=== PATIENT | male | born 1985 | race Two or more races ===

== ENCOUNTER 2021-01-04 09:16 | Outpatient (REF) | payer MEDICARE, MEDICAID, SELFPAY ==
[2021-01-04 09:42] LABS: MANUAL DIFF FLAG NO
[2021-01-04 09:47] LABS: Basophils Absolute Auto 0.1 X10*3/uL (0.0-0.2); Basophils Percent Auto 1.2 % (0-2); Eosinophils Absolute Auto 0.3 X10*3/uL (0.0-0.4); Eosinophils Percent Auto 4.1 % (0-4); Hematocrit 47.6 % (42-52); Hemoglobin 15.8 g/dl (14.0-18.0); Imm Gran Abs Auto 0.03 X10*3/uL (0.00-0.03); Imm Gran Pct Auto 0.5 % (0.0-0.4); Lymphocytes Absolute Auto 1.8 X10*3/uL (1.2-4.9); Lymphocytes Percent Auto 27.8 % (20-40); Mean Corpuscular HGB Conc 33.2 g/dl (31.0-36.0); Mean Corpuscular Hemoglobin 28.5 pg (27.0-33.0); Mean Corpuscular Volume 85.8 fL (80-98); Mean Platelet Volume 10.2 fL (9.4-12.4); Monocytes Absolute Auto 0.5 X10*3/uL (0.1-1.2); Monocytes Percent Auto 8.2 % (2-11); Neutrophils Absolute Auto 3.8 X10*3/uL (2.0-8.3); Neutrophils Percent Auto 58.2 % (45-73); Platelet Count 229 X10*3/uL (160-400); Red Blood Count 5.55 X10*6/uL (4.60-5.80); Red Cell Distribution Width 12.6 % (11.0-16.0); White Blood Count 6.6 X10*3/uL (4.8-10.8)
[2021-01-04 10:02] LABS: Ammonia 55 umol/L (13-55)
[2021-01-04 10:14] LABS: Alanine Aminotransferase 19 U/L (0-40); Albumin Level 4.8 g/dL (3.5-5.0); Alkaline Phosphatase 73 U/L (39-117); Anion Gap 15 (12-20); Aspartate Amino Transferase 17 U/L (5-37); Bilirubin Total 0.5 mg/dL (0.0-1.0); Blood Urea Nitrogen 24 mg/dL (9-16); Calcium 9.1 mg/dL (8.4-10.2); Carbon Dioxide 20 mmol/L (22-29); Chloride 109 mmol/L (96-108); Estimated Glomerular Filt Rate > 60; Glucose Random 110 mg/dL (60-115); Potassium 4.2 mmol/L (3.3-5.1); Sodium 140 mmol/L (135-145); Total Protein 7.2 g/dL (6.5-8.0)
[2021-01-04 11:13] LABS: Carbamazepine Tegretol 6.1 mcg/mL (5.0-12.0); Valproate 37.3 mcg/mL (50.0-100.0)
[2021-01-09 18:46] LABS: Zonisamide Zonegran 12.1 mcg/mL (10.0-40.0)
== END 2021-01-04 09:17 | disposition home or self-care (01) ==
LOC: HO.10HDL 09:16
PROVIDERS: Visit Provider Psychiatry & Neurology Neurology
DX: G40.319 Generalized idiopathic epilepsy and epileptic syndromes, intractable, without status epilepticus (principal); Z79.899 Other long term (current) drug therapy
CPT/HCPCS: 36415; 80053; 80156; 80164; 80203; 82140; 85025

== ENCOUNTER 2022-03-28 15:23 | Outpatient (REF) | payer MEDICARE, SELFPAY ==
[2022-03-28 15:43] LABS: MANUAL DIFF FLAG NO
[2022-03-28 16:16] LABS: Basophils Percent Auto 0.7 % (0-2); Eosinophils Absolute Auto 0.2 X10*3/uL (0.0-0.4); Eosinophils Percent Auto 3.5 % (0-4); Hematocrit 49.9 % (42.0-52.0); Hemoglobin 16.5 g/dl (14.0-18.0); Imm Gran Abs Auto 0.05 X10*3/uL (0.00-0.03); Imm Gran Pct Auto 0.9 % (0.0-0.4); Lymphocytes Absolute Auto 1.4 X10*3/uL (1.2-4.9); Lymphocytes Percent Auto 24.4 % (20-40); Mean Corpuscular HGB Conc 33.1 g/dl (31.0-36.0); Mean Corpuscular Hemoglobin 28.1 pg (27.0-33.0); Mean Platelet Volume 10.7 fL (9.4-12.4); Monocytes Absolute Auto 0.4 X10*3/uL (0.1-1.2); Monocytes Percent Auto 6.5 % (2-11); Neutrophils Absolute Auto 3.7 x10*3/uL (2.0-8.3); Platelet Count 251 X10*3/uL (160-400); Red Blood Count 5.87 X10*6/uL (4.60-5.80); Red Cell Distribution Width 12.6 % (11.0-16.0); White Blood Count 5.7 X10*3/uL (4.8-10.8)
[2022-03-28 17:07] LABS: Carbamazepine Tegretol 7.3 mcg/mL (5.0-12.0); Valproate 28.6 mcg/mL (50.0-100.0)
[2022-03-28 17:08] LABS: Vitamin D 25-OH Total 36.4 ng/mL (>30)
== END 2022-03-28 15:24 | disposition home or self-care (01) ==
LOC: HO.LAB 15:23
PROVIDERS: Visit Provider Psychiatry & Neurology Neurology
DX: G40.319 Generalized idiopathic epilepsy and epileptic syndromes, intractable, without status epilepticus (principal); E55.9 Vitamin D deficiency, unspecified
CPT/HCPCS: 36415; 80156; 80164; 82306; 85025

== ENCOUNTER 2023-05-29 15:13 | Outpatient (AMB) | payer OTHER, SELFPAY ==
[2023-05-29 15:15] VITALS: BP 140/98; PULSE 108; O2SAT 98; BMI 39.1
--- NOTE | 2023-05-29 15:15 | A.OFFPC_ITS ---
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 Accompanied by: Self / Same As Patient Allergies shellfish derived [SHELLFISH DERIVED] Allergy (Severe, Verified 05/29/23 15:37) RASH Medication List - Last Reconciled 05/29/23 by Sonja Whalen MD cetirizine (Zyrtec) 10 mg PO DAILY PRN cholecalciferol (vitamin D3) 25 mcg PO DAILY 90 days clonazepam 1 mg PO BEDTIME divalproex ER 250 mg PO DAILY lacosamide 200 mg PO BID loratadine 10 mg PO DAILY losartan 25 mg PO DAILY 90 days midazolam (Nayzilam) intranasal montelukast 10 mg PO DAILY 90 days Ventolin HFA 90 mcg/actuation (albuterol sulfate) 2 puffs inhalation Q6H PRN 30 days NS zonisamide mg PO Tobacco use date assessed: 05/29/23 Dental Screening Dental Screen Date: 05/29/23 Did you have a dental visit in the last 12 months?: No Did you have a dental problem in the last 6 months where you did not have access to dental care?: No Was dental information given to patient?: Patient declined HPI HPI Comments History of Present Illness Details This is a 37-year-old male with grand mal seizure, hypertension and allergic rhinitis that complains of lumbar pain that has been present for about a year. He does have a lump which is a collection of fatty tissue in lower back which started to her after sitting for prolonged period of time or walking. No numbness. Seizures are follow by Neurology and has been stable with medications. Blood pressure borderline normal to elevated today and will be check at home 3 times a week. He is compliant with losartan. Blood pressure goal is equal or less than 130/80. Allergic rhinitis stable with SutureTak as needed. Accompanied by mother. [facility] Medical History Right arm pain Left forearm pain Allergic rhinitis Hypovitaminosis D Mild asthma Myoclonic seizure disorder Neck pain Surgical History History of tonsillectomy Family History (Updated 05/29/23 @ 15:29 by KIKO Gibson) Father Melanoma Family/Other Prostate cancer Mental health disorder Social History Housing: House Alcohol intake: never Patient Tobacco Use Status: Never used Tobacco e-Cigarette/Vaping Use: Never Used Second Hand Smoke Exposure: No service: No Current occupational status: unemployed and disabled Cognitive needs: No Hearing needs: No Vision needs: Yes Questionnaire PHQ-9 Over the last 2 weeks, how often have you been bothered by any of the following problems? 1. Little interest or pleasure in doing things: not at all 2. Feeling down, depressed, or hopeless: several days 3. Trouble falling or staying asleep, or sleeping too much: more than half the days 4. Feeling tired or having little energy: more than half the days 5. Poor appetite or overeating: several days 6. Feeling bad about yourself - or that you are a failure or have let yourself or your family down: not at all 7. Trouble concentrating on things, such as reading the newspaper or watching television: not at all 8. Moving or speaking so slowly that other people could have noticed. Or the opposite - being so fidgety or restless that you have been moving around a lot more than usual: not at all 9. Thoughts that you would be better off or of hurting yourself in some way: not at all Total score: 6 Source: Developed by Drs. Brad Yoo, Roula Petersen, Khadar Thompson and colleagues, with an educational juan from [employer]. Thrive Questionnaire Date Thrive assessed: 05/29/23 I am a: Patient What is your living situation today?: I have a steady place to live Within the past 12 months, did the food you bought not last and you didn't have the money to get more?: Never true Within the past 12 months, did you worry whether your food would run out before you got money to buy more?: Never true Do you have trouble paying for medicines?: No Do you have trouble getting transportation to medical appointments?: No Do you have trouble paying your heating and electricity bill?: No Do you have trouble taking care of your child, family member or friend?: No Do you have trouble with day-to-day activities such as bathing, preparing meals, shopping, managing finances, etc.?: No Are you currently unemployed and looking for a job?: No Are you interested in more education?: No Please select the resources that you would like help with: None Currently or been in a relationship where the following occur: no concerns reported AUDIT C Alcohol Use Questionnaire (AUDIT-C) 1. How often do you have a drink containing alcohol?: Never Total Score: 0 ABI-7 AMB Questionnaire ABI-7 Date ABI - 7 assessed: 05/29/23 Feeling nervous, anxious, or on edge: 1 = Several days Not being able to stop or control worryin = Not at all Worrying too much about different things: 0 = Not at all Trouble relaxin = Several days Being so restless that it is hard to sit still: 0 = Not at all Becoming easily annoyed or irritable: 1 = Several days Feeling afraid as if something awful might happen: 0 = Not at all Total ABI-7 score (0-4 normal; 5-9 mild; 10-14 moderate; 15-21 severe): 3 Source: Developed by Drs. Brad Yoo, Roula Petersen, Khadar Thompson and colleagues, with an educational juan from [employer]. ABI-7 Assessment Billing ABI-7 Assessment Tool: ABI-7 Assessment 29174 Review of Systems Const All systems reviewed & are unremarkable except as noted in HPI and below Eyes Reports no additional complaints, Denies change in vision and Denies other visual disturbances Card Denies chest pain at rest, Denies chest pain with activity, Denies edema, Denies irregular heart rhythm, Denies claudication, Denies dyspnea, Denies dyspnea on exertion, Denies orthopnea, Denies paroxysmal nocturnal dyspnea and Denies slow heart rate Resp Denies cough, Denies dyspnea and Denies dyspnea on exertion GI Denies abdominal pain, Denies change in bowel habits, Denies excessive flatus, Denies nausea and Denies vomiting Denies urinary hesitancy, Denies urinary incontinence and Denies urinary urgency Musc Denies abnormal gait, Reports back pain, Denies atrophy, Denies deformity and Denies limited range of motion Skin/Breast Denies bleeding lesions, Denies changing lesions and Denies rash Neuro Denies abnormal gait and Denies lack of coordination Physical exam (Primary Care) Vital Signs: Last Vital Signs Pulse 108 H 05/29/23 15:15 BP 140/90 H 05/29/23 16:21 Pulse Ox 98 05/29/23 15:15 Oxygen Delivery Method Room Air 05/29/23 15:15 BMI result Body Mass Index 39.1 Tobacco/Smoking Status: Tobacco use Status Tobacco use date assessed 05/29/23 05/29/23 15:30 Patient Tobacco Use Status Never used Tobacco 05/29/23 15:17 e-Cigarette/Vaping Use Never Used 05/29/23 15:17 PHQ-9: PHQ-9 Score PHQ-9: Total score 6 05/29/23 17:20 Thrive Assessment: Date of Thrive Assessment Date Thrive assessed 05/29/23 05/29/23 15:30 Currently or been in a relationship where the following occur: no concerns reported Neck Neck: Yes normal visual inspection and Yes supple Resp Effort & Inspection: normal respiratory effort Auscultation: clear to auscultation bilaterally Cardio Jugular venous distension: no JVD Rate: regular rate Rhythm: regular rhythm Heart sounds: S1 normal heart sound present and S2 normal heart sound present Extrem General: Yes full ROM Assessment and Plan Assessment & Plan (1) Lumbar pain: Code(s): M54.50 - Low back pain, unspecified Plan: X-ray ordered. (2) Grand mal seizure: Code(s): G40.409 - Other generalized epilepsy and epileptic syndromes, not intractable, without status epilepticus Plan: Continue divalproex. Follow-up with seizure. (3) Essential hypertension: Code(s): I10 - Essential (primary) hypertension Plan: Continue losartan. Blood pressure goal is equal or less than 130/80. (4) Allergic rhinitis: Code(s): J30.9 - Allergic rhinitis, unspecified Plan: Continue Zyrtec as needed. Orders: Orders SARS-CoV2/FLU/RSV Today R09.89 - Other specified symptoms and signs involving the circulatory and respiratory systems XR lumbar spine 2-3V Today M54.50 - Low back pain, unspecified Medications: New doxycycline hyclate 100 mg PO BID 10 tabs 0RF 5 days Coding Level of Care Code Est Pt Level 4 (85031) Diagnoses Lumbar pain M54.50 Grand mal seizure G40.409 Essential hypertension I10 Allergic rhinitis J30.9 Additional Codes ABI-7 Assessment Billing - ABI-7 Assessment Tool: ABI-7 Assessment 35393 ([id number]) PHQ-9 - 60776 - PHQ-9 Billing: ([id number]) Time Spent (min) 23
[2023-05-29 16:21] VITALS: BP 140/90
== END 2023-05-29 15:55 | disposition home or self-care (01) ==
PROVIDERS: PCP Internal Medicine; Visit Provider Internal Medicine
DX: M54.50 Low back pain, unspecified (principal); G40.409 Other generalized epilepsy and epileptic syndromes, not intractable, without status epilepticus; I10 Essential (primary) hypertension; J30.9 Allergic rhinitis, unspecified
CPT/HCPCS: 99214

== ENCOUNTER 2023-05-29 16:04 | Outpatient (REF) | payer OTHER, SELFPAY ==
--- NOTE | ~2023-05-29 | XR_ITS ---
EXAMINATION: XR LUMBOSACRAL SPINE CLINICAL INFORMATION: Lower back pain. COMPARISON: None available. TECHNIQUE: AP and lateral views of the lumbar spine and lateral view of the lumbosacral junction. FINDINGS: The vertebral bodies and posterior elements are normal. The disc spaces are preserved and the vertebral alignment is normal. The paraspinal soft tissues are normal. XR/XR lumbar spine 2-3V IMPRESSION: Unremarkable examination.
[2023-05-29 17:30] LABS: Influenza A PCR NEGATIVE (Negative); Influenza B PCR NEGATIVE (Negative); Resp Syncy Virus RNA Qual PCR NEGATIVE (Negative); SARS COV2 PCR INHOUSE NEGATIVE (Negative)
== END 2023-05-29 16:05 | disposition home or self-care (01) ==
LOC: HO.LAB 16:04
PROVIDERS: PCP Internal Medicine; Visit Provider Internal Medicine
DX: M54.50 Low back pain, unspecified (principal); R09.89 Other specified symptoms and signs involving the circulatory and respiratory systems; Z11.52 Encounter for screening for COVID-19
CPT/HCPCS: 0241U; 72100

== ENCOUNTER 2024-05-11 13:49 | Outpatient (AMB) | payer OTHER, SELFPAY ==
[2024-05-11 13:58] VITALS: BP 130/82; BMI 32.1
--- NOTE | 2024-05-11 13:58 | AM.OFFVISMDC ---
Intake Vital Signs 05/11/24 13:58 Height 6 ft Weight 237 lb BMI 32.1 BP 130/82 Blood Pressure Location Lt brachial Position Sitting Intake Visit Reasons: AWV G0438 Music Ministries Director Required: No Accompanied by: Self / Same As Patient Allergies shellfish derived [SHELLFISH DERIVED] Allergy (Severe, Verified 05/11/24 14:15) RASH Medication List - Last Reconciled 05/11/24 by Sonja Whalen MD cetirizine (Zyrtec) 10 mg PO DAILY PRN 90 days cholecalciferol (vitamin D3) 25 mcg PO DAILY 90 days clonazepam 1 mg PO BEDTIME lacosamide 200 mg PO BID loratadine 10 mg PO DAILY losartan 25 mg PO DAILY 90 days midazolam (Nayzilam) intranasal montelukast 10 mg PO DAILY 90 days Ventolin HFA 90 mcg/actuation (albuterol sulfate) 2 puffs inhalation Q6H PRN 30 days NS zonisamide mg PO HPI HPI Comments History of Present Illness Details This is a 38-year-old male with seizures that comes for his Medicare wellness exam. Seizures are follow by Neurology and has been stable. Ppp handed to patient. [place] of care was updated. [facility] Medical History (Updated 05/11/24 @ 15:45 by Sonja Whalen MD) Grand mal seizure Right arm pain Left forearm pain Allergic rhinitis Hypovitaminosis D Mild asthma Myoclonic seizure disorder Neck pain Surgical History History of tonsillectomy Family History (Updated 05/11/24 @ 14:19 by Sonja Whalen MD) Father Melanoma Family/Other Prostate cancer Mental health disorder Mother Asthma Social History Housing: House Alcohol intake: never Patient Tobacco Use Status: Never used Tobacco e-Cigarette/Vaping Use: Never Used Second Hand Smoke Exposure: No service: No Current occupational status: unemployed and disabled Cognitive needs: No Hearing needs: No Vision needs: Yes Questionnaire Medicare Wellness Checkup What gender do you identify with?: male During the past 4 weeks, how much have you been bothered by emotional problems such as feeling anxious, depressed, irritable, sad or downhearted, and blue?: moderately During the past 4 weeks, has your physical & emotional health limited your social activities with family, friends, neighbors, or groups?: moderately During the past 4 weeks, how much bodily pain have you generally had?: no pain During the past 4 weeks, was someone available to help you if you needed & wanted help?: yes, as much as I wanted During the past 4 weeks, what was the hardest physical activity you could do for at least 2 minutes?: light Can you get to places out of walking distance without help? (For eg., can you travel alone on buses, taxis or drive your car?): Yes Can you go shopping for groceries or clothes without someone's help?: Yes Can you prepare your own meals?: No Can you do your housework without help?: No Because of any health problems, do you need the help of another person with your personal care needs such as eating, bathing, dressing or getting around the house?: No Can you handle your own money without help?: Yes During the past 4 weeks, how would you rate your health in general?: fair During the past 4 weeks how have things been going for you?: good & bad parts about equal Are you having difficulties driving your car?: not applicable, I don't use a car Do you always fasten your seat belt when you are in a car?: yes, usually During past 4 weeks, have you been bothered by the following: never: Falling or dizzy when standing up, Sexual problems? and Problems using the telephone?, seldom: Teeth or denture problems? and sometimes: Trouble eating well? and Tiredness or fatigue? Have you fallen 2 or more times in the past year?: No Are you afraid of falling?: Yes Are you a smoker?: no During the past 4 weeks, how many drinks of wine, beer, or other alcoholic beverages did you have?: no alcohol at all Do you exercise for about 20 minutes 3 or more times a week?: no, I usually do not exercise this much Have you been given information to help with the following?: yes: Keeping track of your medications? and no: Hazards in your house that might hurt you? How often do you have trouble taking medicines the way you have been told to take them?: I always take medicine as prescribed How confident are you that you can control & manage most of your health problems?: somewhat confident What is your race?: or origin or descent Mini Mental State Exam (MMSE) Orientation What is the (year) (season) (date) (day) (month)?: year, season, date, day and month Where are we (state) (county) (town or city) (hospital) (floor)?: state, county, town or city, hospital/clinic and floor Registration Name of 3 unrelated objects clearly and slowly, then ask patient to repeat all 3 of them. (1st repeat determines score. Make sure they can repeat all three): object 1, object 2 and object 3 Attention & Calculation (CHOOSE ONE) Spell WORLD backwards (DLROW): 5 letters Recall Ask patient to repeat the 3 items from question #3.: object 1, object 2 and object 3 Language Show patient a wristwatch & ask what it is. Repeat for pencil.: watch and pencil Ask the patient to repeat the phrase 'No ifs, ands, or buts' after you.: correct Ask the patient to 'take a piece of paper with their right hand' 'fold paper in half' 'place paper on floor': take paper in right hand, fold paper in half and place paper on floor Print the sentence 'CLOSE YOUR EYES' on a piece. If patient actually closes eyes then score.: followed written direction Give patient a blank piece of paper & ask to write a sentence. Score if it contains a noun & verb.: sentence contains subject and verb Ask patient to copy figure of intersecting pentagons exactly. Score if all 10 angles & 2 intersects are included.: all 10 angles present & 2 are intersected Score Score: 30 Activity of Daily Living Bathing - sponge bath, tub bath or shower: receives no assistance (gets in/out by self, if usual bathing means Dressing - getting clothes from closets & drawers, including inner/outer garments & fasteners.: gets clothes & gets completely dressed without help Transfer: moves in & out of bed and chair without help (may use support object) Continence: controls urination/bowel movements completely by self Feeding: feeds self without help Total Score: 0 Information obtained from: patient Using telephone: independent Traveling: needs assistance Shopping: needs assistance Preparing meals: needs assistance Housework: needs assistance Taking medicine: independent Managing money: independent PHQ-9 Over the last 2 weeks, how often have you been bothered by any of the following problems? 1. Little interest or pleasure in doing things: more than half the days 2. Feeling down, depressed, or hopeless: several days 3. Trouble falling or staying asleep, or sleeping too much: nearly every day 4. Feeling tired or having little energy: nearly every day 5. Poor appetite or overeating: more than half the days 6. Feeling bad about yourself - or that you are a failure or have let yourself or your family down: nearly every day 7. Trouble concentrating on things, such as reading the newspaper or watching television: nearly every day 8. Moving or speaking so slowly that other people could have noticed. Or the opposite - being so fidgety or restless that you have been moving around a lot more than usual: several days 9. Thoughts that you would be better off or of hurting yourself in some way: not at all Total score: 18 Depression Screening Interpretation: Positive (no suicidal thoughts) Depression Screening Follow-up: Existing condition and Follow-up Visit Requested Depression Screening Done: Yes 41191 - PHQ-9 Billing: Yes Source: Developed by Drs. Brad Yoo, Roula Petersen, Khadar Thompson and colleagues, with an educational juan from [employer]. Thrive Questionnaire Date Thrive assessed: 05/11/24 I am a: Patient What is your living situation today?: I have a steady place to live Within the past 12 months, did the food you bought not last and you didn't have the money to get more?: Never true Within the past 12 months, did you worry whether your food would run out before you got money to buy more?: Never true Do you have trouble paying for medicines?: No Do you have trouble getting transportation to medical appointments?: No Do you have trouble paying your heating and electricity bill?: No Do you have trouble taking care of your child, family member or friend?: No Do you have trouble with day-to-day activities such as bathing, preparing meals, shopping, managing finances, etc.?: No Are you currently unemployed and looking for a job?: No Are you interested in more education?: No Please select the resources that you would like help with: None Currently or been in a relationship where the following occur: No concerns reported THRIVE Score: 0 AUDIT C Alcohol Use Questionnaire (AUDIT-C) 1. How often do you have a drink containing alcohol?: Never Total Score: 0 Score Reviewed/Action Taken: No ABI-7 AMB Questionnaire ABI-7 Date ABI - 7 assessed: 05/11/24 Feeling nervous, anxious, or on edge: 1 = Several days Not being able to stop or control worryin = Not at all Worrying too much about different things: 1 = Several days Trouble relaxin = Several days Being so restless that it is hard to sit still: 0 = Not at all Becoming easily annoyed or irritable: 0 = Not at all Feeling afraid as if something awful might happen: 1 = Several days Total ABI-7 score (0-4 normal; 5-9 mild; 10-14 moderate; 15-21 severe): 4 Source: Developed by Drs. Brad Yoo, Roula Petersen, Khadar Thompson and colleagues, with an educational juan from [employer]. ABI-7 Assessment Billing ABI-7 Assessment Tool: ABI-7 Assessment 57064 Review of Systems Const All systems reviewed & are unremarkable except as noted in HPI and below Card Denies chest pain at rest, Denies chest pain with activity, Denies edema, Denies irregular heart rhythm, Denies claudication, Denies dyspnea, Denies dyspnea on exertion, Denies orthopnea, Denies paroxysmal nocturnal dyspnea and Denies slow heart rate Resp Denies cough, Denies dyspnea and Denies dyspnea on exertion GI Denies abdominal pain, Denies change in bowel habits, Denies excessive flatus, Denies nausea and Denies vomiting Neuro Denies confusion Psych Denies confusion Physical Exam Vital Signs: Last Vital Signs BP 130/82 05/11/24 13:58 BMI result Body Mass Index 32.1 Const General: No confusion Orientation/consciousness: patient oriented x3 and No confusion Resp Effort & Inspection: normal respiratory effort Auscultation: clear to auscultation bilaterally Cardio Jugular venous distension: no JVD Rate: regular rate Rhythm: regular rhythm Heart sounds: S1 normal heart sound present and S2 normal heart sound present Neuro General: patient oriented x3, no focal motor deficits and No confusion Romberg Test: Negative Extrem General: Yes full ROM Psych Appearance: grossly normal Office Procedures Flu Questionnaire Does the patient have a severe egg allergy?: No Does the patient have severe life threatening allergies?: No Does the patient have a fever or illness today?: No Has the patient ever had Guillain-[place] Syndrome?: No Has the patient ever had any past reaction to a flu shot?: No Immunizations Fluarix Triv [id number] (PF) 45 mcg (15 mcg x 3)/0.5 mL IM syringe Performing Provider: Sonja Whalen MD Performing Location: [facility] Administered by: KIKO Gibson on 05/11/24 14:48 Dose Route Admin Location Dispensed Lot Number Expiration Date NDC [employer] 0.5 mL IM Right Deltoid 0.5 mL [id number] 01/11/25 [id number] [place] VIS Given Date VIS Provided VIS Publication Date 05/11/24 Single Vaccine 21 Eligibility Eligibility Date Funding Source Not [facility] Eligible 05/11/24 Private Assessment & Plan Assessment & Plan (1) Encounter for Medicare annual wellness exam: Code(s): Z00.00 - Encounter for general adult medical examination without abnormal findings Plan: Repeat in a year. (2) Myoclonic seizure disorder: Code(s): G40.409 - Other generalized epilepsy and epileptic syndromes, not intractable, without status epilepticus Plan: Continue zonisamide. Follow-up with Neurology. Orders: Orders Influenza [id number] Immunization Today Z23 - Encounter for immunization Lipid Panel Today E78.5 - Hyperlipidemia, unspecified Comprehensive [place]. Panel Fast Today G40.409 - Other generalized epilepsy and epileptic syndromes, not intractable, without status epilepticus Vitamin D 25-OH Total Today E55.9 - Vitamin D deficiency, unspecified Medications: New benzonatate 100 mg PO BID PRN 10 caps 0RF cough 5 days Quality Reporting (2019) Depression/Bipolar (159/160/161/177) PHQ-9: Total score: 18 Coding Level of Care Code Medicare First (G0438) Diagnoses Encounter for Medicare annual wellness exam Z00.00 Myoclonic seizure disorder G40.409 CPT Codes Advance Care Planning - Advance Care Planning discussion: On file, no changes ([id number]) Additional Codes ABI-7 Assessment Billing - ABI-7 Assessment Tool: ABI-7 Assessment 64912 ([id number]) Time Spent (min) 33 Advance Care Planning Advance Care Planning discussion: On file, no changes Forms completed: Health Care Proxy
== END 2024-05-11 14:43 | disposition home or self-care (01) ==
LOC: HO.HMCH 13:50
PROVIDERS: PCP Internal Medicine; Visit Provider Internal Medicine
DX: Z00.00 Encounter for general adult medical examination without abnormal findings (principal); G40.409 Other generalized epilepsy and epileptic syndromes, not intractable, without status epilepticus

== ENCOUNTER 2024-05-11 13:49 | Outpatient (REF) | payer OTHER, SELFPAY ==
[2024-05-11 16:01] LABS: Alanine Aminotransferase 28 U/L (0-40); Albumin Level 4.8 g/dL (3.5-5.0); Alkaline Phosphatase 73 U/L (39-117); Anion Gap 12 (12-20); Aspartate Amino Transferase 19 U/L (5-37); Bilirubin Total 0.5 mg/dL (0.0-1.0); Blood Urea Nitrogen 12 mg/dL (9-16); Carbon Dioxide 22 mmol/L (22-29); Chloride 109 mmol/L (96-108); Cholesterol 210 mg/dL (<200); Estimated Glomerular Filt Rate > 60; Glucose Fasting 107 mg/dL (60-99); HDL Cholesterol 44 mg/dL (>40); LDL Cholesterol Calculated 146 mg/dL (<100); Potassium 4.1 mmol/L (3.3-5.1); Sodium 139 mmol/L (135-145); Total Protein 7.7 g/dL (6.5-8.0); Triglycerides 100 mg/dL (<150)
[2024-05-11 16:17] LABS: Vitamin D 25-OH Total 35.9 ng/mL (>30)
== END 2024-05-11 13:50 | disposition home or self-care (01) ==
LOC: HO.LAB 13:49
PROVIDERS: PCP Internal Medicine; Visit Provider Internal Medicine
DX: Z00.00 Encounter for general adult medical examination without abnormal findings (principal); E55.9 Vitamin D deficiency, unspecified; E78.5 Hyperlipidemia, unspecified; G40.409 Other generalized epilepsy and epileptic syndromes, not intractable, without status epilepticus; Z23 Encounter for immunization
CPT/HCPCS: 36415; 80053; 80061; 82306; 90471; 90656; 96127

== ENCOUNTER 2025-06-29 15:35 | Outpatient (AMB) | payer OTHER, SELFPAY ==
--- OUTSIDE RECORDS SUMMARY | 2023-01-11 14:58 | XMS_ITS | Encounter Summary ---
Author Organization [facility] Address [address] [place] [address] Care Team Providers Care Manager Sports Name Role Phone Sonja Muniz MD Primary Care Provider [phone] Encounter Details Date Type Department Care Team (Late st Contact Info) Description 01/11/2023 3:58 PM EDT Hospital Encounter [facility] [address] [place] [address] Chayo Yanez PA-C [address] [place], [place] [id number] Foot injury, left, initial encounter Social History Tobacco Use Types Packs/Day Years Used Date Smoking Tobacco: Never Smokeless Tobacco: Never Alcohol Use Standard Drinks/Week Comments Never 0 (1 standard drink = 0.6 oz pur e alcohol) PHQ-2 Answer Date Recorded PHQ-2 Total Score 3 03/04/2023 Sex and Gender Information Value Date Recorded Sex Assigned at Male 01/11/2023 3:06 PM EDT Legal Sex Male 3:00 PM EDT Gender Identity Male 01/11/2023 3:06 PM EDT Sexual Orientation Choose not to disclose 2024 1:00 AM EDT Sexual Orientation Heterosexual (straight) 05/07 1:00 AM EDT COVID-19 Exposure Response Date Recorded In the last 10 days, have yo u been in contact with someone who was confirmed or suspected to have Coronavirus/COVID-19? Unable to assess 01/11/2023 3:01 PM EDT documented as of this encounter Functional Status * Over the past 2 weeks, how often have you been bothered by any of the following problems? Question Answer Date of Assessment Author Patient Health Questionnaire -2 Score 3 03/04/2023 4:26 PM EDT Eusebia Cha , CERNER ANALYST * Question Answer Date of Assessment Author Patient Health Questionnaire -9 Score 16 03/04/2023 4:26 PM EDT Eusebia Cha , CERNER ANALYST * Question Answer Date of Assessment Author PHQ-2 Total Score 3 03/04/2023 4:26 PM EDT ChaAlejandro gtzette, CERNER ANALYST Little interest or pleasure in doing things More than half the days 03/04/2023 4:26 PM EDT ChaAlejandro gtzette, CERNER ANALYST Feeling down, depressed, or hopeless Several days 03/04/2023 4:26 PM EDT ChaAlejandroEusebia, CERNER ANALYST Trouble falling or staying asleep, or sleeping too much Nearly every day 03/04/2023 4:26 PM EDT ChaAlejandroEusebia, CERNER ANALYST Feeling tired or having little energy Nearly every day 03/04/2023 4:26 PM EDT ChaAlejandroEusebia, CERNER ANALYST Poor appetite or overeating More than half the days 03/04/2023 4:26 PM EDT Cha Eusebia, CERNER ANALYST Feeling bad about yourself - or that you are a failure or have let yourself or your family down Nearly every day 03/04/2023 4:26 PM EDT Alejandro Chaette, CERNER ANALYST Trouble concentrating on things, such as reading the newspaper or watching television More than half the days 03/04/2023 4:26 PM EDT ChaAlejandroEusebia, CERNER ANALYST Moving or speaking so slowly that other people could have noticed? Or the opposite - being so fidgety or restless that you have been moving around a lot more than usual. Not at all 03/04/2023 4:26 PM EDT ChaEusebia gtz, CERNER ANALYST Thoughts that you would be better off or hurting yourself in some way Not at all 03/04/2023 4:26 PM EDT Eusebia Cha LCSW How difficult have these problems made it for you to do your work, take care of things at home, or get along with other people? Not difficult at all 03/04/2023 4:26 PM EDT Eusebia Cha LCSW PHQ-9 Total Score 16 03/04/2023 4:26 PM EDT Eusebia Cha LCSW documented as of this encounter Plan of Treatment Not on file documented as of this encounter Procedures Procedure Name Priority Date/Time Associated Diagnosis Comments XR FOOT 3+ VIEWS-LEFT STAT 01/11/2023 4:05 PM EDT Foot injury, left, initial encounter documented in this encounter Results * XR Foot 3+ views-Left (01/11/2023 4:05 PM EDT) Anatomical Region Laterality Modality Foot Left Computed Radiogr aphy 01/11/2023 4:07 PM EDT Impressions 01/11/2023 4:08 PM EDT No acute osseous injury identified. Narrative 01/11/2023 4:08 PM EDT STUDY: XR FOOT 3+ VIEWS-LEFT INDICATION: Injured foot during grand mal (tonic-clonic) seizure COMPARISON: No prior similar studies were available for comparison at this institution. FINDINGS: No displaced fracture or dislocation is seen. Mild degenerative changes are seen at the first metatarsophalangeal joint. No radiopaque foreign body is appreciated. Procedure Note Mallorie Murphy MD - 01/11/2023 STUDY: XR FOOT 3+ VIEWS-LEFT INDICATION: Injured foot during grand mal (tonic-clonic) seizure COMPARISON: [facility] FINDINGS: No displaced fracture or dislocation is seen. Mild degenerative changesare seen at the first metatarsophalangeal joint. No radiopaque foreignbody is appreciated. IMPRESSION: No acute osseous injury identified. Chayo Yanez PA-C [facility] Final Result documented in this encounter Visit Diagnoses Diagnosis Foot injury, left, initial encounter documented in this encounter Care Teams Manager Sports Relationship Specialty Start Date End Date Sonja Muniz MD [address] [place] [address] PCP - General Family Medicine 01/11/23 documented as of this encounter
--- OUTSIDE RECORDS SUMMARY | 2025-06-28 11:00 | XMS_ITS | Encounter Summary ---
Author Organization [facility] Address [address] [place] [id number] Care Team Providers Care Typesetter Perforator Operator Name Role Phone Tal Blanco MD Primary Care Provider [phone] Encounter Details Date Type Department Care Team (Late st Contact Info) Description 06/28/2025 11:00 AM EST Clinical Support [facility] Neurology, [address] [address] Georgia Loza, IVORY [address] [place] [phone] Ketogenic diet (Primary Dx); Encounter for monitoring of ketogenic diet; Seizures Social History Tobacco Use Types Packs/Day Years Used Date Smoking Tobacco: Never Smokeless Tobacco: Never Tobacco Cessation:Counseling Given: Not Answered Sex and Gender Information Value Date Recorded Sex Assigned at Male 04/15/2023 2:17 PM EDT Legal Sex Male 8:22 AM EDT Gender Identity Male 04/15/2023 2:17 PM EDT Sexual Orientation Not on file documented as of this encounter Last Filed Vital Signs Vital Sign Reading Time Taken Comments Blood Pressure 132/88 06/28/2025 11:03 AM EST Pulse - - Temperature - - Respiratory Rate - - Oxygen Saturation - - Inhaled Oxygen Concentration - - Weight 104 kg (229 lb 4.5 oz) 06/28/2025 11:03 A M EST Height 178.5 cm (5' 10.28 ) 06/28/2025 11:03 AM EST Body Mass Index 32.64 06/28/2025 11:03 AM EST documented in this encounter Patient Instructions * Patient Instructions* Georgia Loza, IVORY - 06/28/2025 11:00 AM EST Weigh yourself weekly Labs are ordered, fasting the week after [place] Change the lunch meal to 1/2 KetoVie and add in 1-2 oz protein and One fat exchange Update us in 1-2 months your weight and seizures via [employer]. Look up the Heavy cream fat exchange amount documented in this encounter Progress Notes * Georgia Loza RD - 06/28/2025 11:00 AM EST Reason for Consult: Nutrition Encounter for Modified Ketogenic Diet Medical Therapy follow up for 3 months. See in person with girlfriend Anay and benito RN Dx: Patient Active Problem List Diagnosis Intractable juvenile myoclonic epilepsy Primary hypertension Class 3 severe obesity with body mass index (BMI) of 40.0 to 44.9 in adult, unspecified obesity type, unspecified whether serious comorbidity present Modified Ketogenic diet Stomach feeling better now Seizures: no big seizures, last one end of April Little seizures once per 3-4 weeks, Anay agreed too. prior to initiating diet : diet efficacy goal is < 1 or 1 per month Seizures: more with illness Ketones : checking moderate to large for past 4 days now ,l 50-75% improved per Laurie and girlfriend Noticed more energy , not as brain foggy per girlfriend Diet History: Growth : Wt Readings from Last 3 Encounters: 06/28/25 (!) 104 kg (229 lb 4.5 oz) 05/26/25 (!) 102.5 kg (225 lb 15.5 oz) 05/26/25 (!) 102.5 kg (225 lb 15.5 oz) Ht Readings from Last 3 Encounters: 05/26/25 182 cm (5' 11.65 ) 05/26/25 182 cm (5' 11.65 ) 05/03/25 182 cm (5' 11.65 ) There is no height or weight on file to calculate BMI. Diet:MKD : calculating as 5 carbs? So 100-120 oz fluids per day MKD @ 3 meals with 20 net carbs per day 3-4 oz of protein per meal x 3 per day 3 fat exchanges per meal x 3 for 9 exchanges per day. 1- Centrum MVI with minerals per day Use Swan's lite salt and regular salt daily Vitamin D Effer K Allergies : Allergies Allergen Reactions Shellfish Derived Hives and Swelling Formula: KetoVie vanilla he called them 3 days ago: they send they would be sending it out :and obtain it from [facility]. Ketoformula: liked chocolate Luke: [facility] [place] will deliver. Foods/meals: B: lettuce wraps 11-12 am : 2 lettuce and 2 wraps, turkey and marie (1) 16 slices ( [facility]) or salami (5) cheese sharp [employer] cheese and salt Mostly zayra: turkey , pepperoni, roast beef and pastramai, Max's 4-6 net carbs L: 3-4 Luke shake with water no other foods , carbs or protein D:7 pm : meatballs keto homemade : mushrooms and gravy and zucchini noodles and heavy cream steak and asparagus , cauliflower rice or chicken with heavy cream and cheese , zucchini noodle : Chicken pork rinds, No snack Free foods :pickles, 90% chocolate Meals are 15 net carbs Fluids:water per day Fluids: loves his water 100-120 oz per day Urine and skin: no issues Bowel movements:daily no issues Bowel aids: not needed Reflux: no Vitamins and supplements: MVI with minerals: Calcium: not taking Salt: lite salt : yes Bicarbonate: Effer K Medications: Current Outpatient Medications Medication Instructions albuterol (VENTOLIN HFA) 90 mcg/actuation inhaler cetirizine (ZYRTEC) 10 mg cholecalciferol (VITAMIN D3) 25 mcg (1,000 unit) capsule 1 tablet, Daily citric acid-sodium citrate (BICITRA) 500-334 mg/5 mL solution 15 mLs, Oral, 3 times daily with meals clonazePAM (KLONOPIN) 2 mg, Every evening fluticasone propionate (FLONASE) 50 mcg/actuation nasal spray 1 spray, Daily KETONE URINE TEST strip 1 strip, Other, As needed, Take urine ketones daily in pm LUKE 3.4 gram-159 kcal/100 mL Liquid lacosamide (VIMPAT) 200 mg, 2 times daily losartan (COZAAR) 25 mg, Daily montelukast (SINGULAIR) 10 mg, Daily multivitamin tablet 1 tablet, Daily NAYZILAM 5 mg/spray (0.1 mL) [place], Non-Aerosol No dose, route, or frequency recorded. ondansetron (ZOFRAN) 4 MG tablet No dose, route, or frequency recorded. ondansetron (ZOFRAN-ODT) 4 mg, Every 8 hours PRN potassium bicarbonate (EFFER-K) 25 MEQ effervescent tablet 25 mEq, Oral, 2 times daily sodium chloride (SWAN LITE SALT) Salt meals zonisamide (ZONEGRAN) 300 mg, Nightly FDI: MVI with minerals: Do not take with calcium carbonate supplements. Last Labs: now due for 3 month lab protocol: Last BHB negative 0.37. History : Julia is here for his 1 month MKD diet follow up and has lost ~ 2 kg in the past month and now since past Saturday getting large and some extra large urine ketones. Physically looks well nourished with no skin issues, no constipation or reflux, Drinking 100% plus fluids no issues mainly water. Had a couple bouts of low blood sugar he treated with sips of juice now resloved. He has chosen to hold on his Nutrafol medication which had 1 net carb. Pt consuming 18-19 net carbs per day with 3 meals per day ( roughly 2 meals and one snack. Taking excellent protein to keep full and doing great with fat exchanges mostly using marie and heavy cream and olive oil. Calcium supplement not needed at this time as pt consuming ~ 3 servings of calcium from cheese slices, block cheese shredded, unsweetened almond milk and imer's shakes. Taking the Bicitra ( does not like taste) and MVI and salt with vitamin D supplement. No change to medications just saw his Adult Neurologist. Overall tolerating the MKD without symptoms with some success on seizures at this point. Need labs to futher assess ketones in blood and nutritional tolerances. Girlfriend and Laurie are noticing positive side effects for focusing and mood and ability to engage in movement and activities. . Keto team fruther reinforced sick guidelines and other meal lifestyle guidelines as needed. 05.26.25 Saw Laurie to help with guidance to get back to stronger ketosis. He stated he ate edamames and got food posisining. He is back to eating his usual and his urine ketones are on smaller range. Reinforced his diet and he is back to doing the diet as he was last month when seizures were more in control. During an illness the gut microbiome is disturbed and it may take some time to replenish the ketone produced bacteria that goes to the brain. Keto labs taken after illness indicating tolerance of MKD Chol 217 and Trig 58, carnitine normal . BHB negative 0.37. Could use extra fat once patient feeling better from GI illness. Will add more fat or slightly decrease at next visit in 1 month Assessment: Since illness , last 4 days in moderate to large ketosis. Weight has increased most likely not being in ketosis due to illness. Pt well now and back to normal. He has been counting the KetoVie as 5 net carbs and it is only 0.5 . Will keep the goal at 15 net carbs as pt has improved with seizure control. Weight may go down if patient can stay in ketosis. Not giving adequate fat , re-educated Nutrition Diagnosis: altered carbohydrate metabolism related to the modified keto diet as evidencedby diet analysis and ketones in the urine. Intervention: Weigh yourself weekly Labs are ordered, fasting the week after Greg Change the lunch meal to 1/2 KetoVie and add in 1-2 oz protein and One fat exchange ( this will help reduced calories but add no additional carbs) Update us in 1-2 months your weight and seizures via [employer]. Look up the Heavy cream fat exchange amount Follow up in 4 month documented in this encounter Plan of Treatment Upcoming Encounters Date Type Department Care Team (Late st Contact Info) Description 11/08/2025 8:40 AM EDT Office Visit [facility] Neurology, [address] [address] Kathie Koenig MD [address] [place] [id number] 11/08/2025 9:00 AM EDT Clinical Support [facility] [place] [id number] documented as of this encounter Visit Diagnoses Diagnosis Ketogenic diet- Primary Other specified conditions influencing health status Encounter for monitoring of ketogenic diet Seizures Other convulsions documented in this encounter Care Teams Typesetter Perforator Operator Relationship Specialty Start Date End Date Tal Blanco MD [address] [place] [address] PCP - General 02/28/23 documented as of this encounter
--- NOTE | 2025-06-29 15:37 | A.OFFPC_ITS ---
Vital Signs 06/29/25 15:38 Height 6 ft Weight 229 lb 4 oz BMI 31.1 BP 140/90 H Blood Pressure Location Lt brachial Position Sitting Respiration 16 Pulse 70 Pulse Source Pulse Oximeter Temp 96.8 F Temp Source Temporal Artery Scan Pulse Oximetry (%) 96 Oxygen Delivery Method Room Air Intake Visit Reasons: Annual visit Medical Facilities Section Director Required: No Accompanied by: Self / Same As Patient Allergies shellfish derived (SHELLFISH DERIVED) Allergy (Severe, Verified 06/29/25 16:03) RASH Medication List - Last Reconciled 06/29/25 by Sonja Whalen MD cetirizine (Zyrtec) 10 mg PO DAILY PRN 90 days cholecalciferol (vitamin D3) 25 mcg PO DAILY 90 days clonazepam 1 mg PO BEDTIME ketoconazole 2% topical 2XW lacosamide 200 mg PO BID losartan 25 mg PO DAILY 90 days midazolam (Nayzilam) intranasal montelukast 10 mg PO DAILY 90 days sodium citrate-citric acid 500-334 mg/5 mL mL PO Ventolin HFA 90 mcg/actuation (albuterol sulfate) 2 puffs inhalation Q6H PRN 30 days NS zonisamide mg PO Tobacco use date assessed: 06/29/25 Dental Screening Dental Screen Date: 06/29/25 Did you have a dental visit in the last 12 months?: No Did you have a dental problem in the last 6 months where you did not have access to dental care?: No Was dental information given to patient?: No HPI HPI Comments History of Present Illness Details The patient is a 39 year old male presenting for a physical examination. He has a history of a seizure disorder and reports his seizure doctor recommended weight loss as it may be contributing to his seizures. Initially, he was not approved for a ketogenic diet because he was not having seizures, but was later approved after they recurred. Prior to the keto diet, he was consuming only salads and shakes, which he believes may have caused seizures due to inadequate caloric intake. He was hospitalized in April due to food poisoning, which he believes caused him to exit ketosis, leading to subsequent weight gain of 4 pounds. Since the food poisoning, he has experienced four or five seizures. He is currently receiving education on the ketogenic diet. Regarding his medications, the patient reports he has not been taking his losartan 25 mg as he was advised by his seizure doctor that weight loss should lower his blood pressure. He takes Zyrtec, vitamin D, clonazepam, ketoconazole shampoo, lacosamide (which replaced Keppra), Singulair, and zonisamide. He has a known allergy to shellfish. Past surgical history includes a tonsillectomy and a right inguinal hernia repair. A questionnaire completed as part of the physical detected some depression, though the patient is not currently seeing anyone for this. He received a flu vaccine in March or April. He does not recall when his last tetanus vaccine was. [facility] Medical History Grand mal seizure Right arm pain Left forearm pain Allergic rhinitis Hypovitaminosis D Mild asthma Myoclonic seizure disorder Neck pain Surgical History (Updated 06/29/25 @ 16:12 by Sonja Whalen MD) Inguinal hernia History of tonsillectomy Family History Father Melanoma Family/Other Prostate cancer Mental health disorder Mother Asthma Social History Housing: House Alcohol intake: never Patient Tobacco Use Status: Never used Tobacco e-Cigarette/Vaping Use: Never Used Second Hand Smoke Exposure: No service: No Current occupational status: unemployed and disabled Cognitive needs: No Hearing needs: No Vision needs: Yes (rx glasses) Questionnaire PHQ-9 Over the last 2 weeks, how often have you been bothered by any of the following problems? 1. Little interest or pleasure in doing things: not at all 2. Feeling down, depressed, or hopeless: several days 3. Trouble falling or staying asleep, or sleeping too much: several days 4. Feeling tired or having little energy: several days 5. Poor appetite or overeating: not at all 6. Feeling bad about yourself - or that you are a failure or have let yourself or your family down: more than half the days 7. Trouble concentrating on things, such as reading the newspaper or watching television: several days 8. Moving or speaking so slowly that other people could have noticed. Or the opposite - being so fidgety or restless that you have been moving around a lot more than usual: several days 9. Thoughts that you would be better off or of hurting yourself in some way: several days Total score: 8 Depression Screening Interpretation: Positive Depression Screening Follow-up: Existing condition and Follow-up Visit Requested Depression Screening Done: Yes Source: Developed by Drs. Brad Yoo, Roula Petersen, Khadar Thompson and colleagues, with an educational juan from [employer]. Thrive Questionnaire Date Thrive assessed: 06/29/25 I am a: Patient What is your living situation today?: I have a place to live, but I am worried about losing it in the future Within the past 12 months, did the food you bought not last and you didn't have the money to get more?: Sometimes True Within the past 12 months, did you worry whether your food would run out before you got money to buy more?: Sometimes True Do you have trouble paying for medicines?: No Do you have trouble getting transportation to medical appointments?: No Do you have trouble paying your heating and electricity bill?: Yes Do you have trouble taking care of your child, family member or friend?: Yes Do you have trouble with day-to-day activities such as bathing, preparing meals, shopping, managing finances, etc.?: No Are you currently unemployed and looking for a job?: I choose not to answer this question Are you interested in more education?: I choose not to answer this question Please select the resources that you would like help with: Housing/Retirement, Food and Utilities Currently or been in a relationship where the following occur: I choose not to answer THRIVE Score: 4 AUDIT C Alcohol Use Questionnaire (AUDIT-C) 1. How often do you have a drink containing alcohol?: Never Total Score: 0 Score Reviewed/Action Taken: No ABI-7 AMB Questionnaire ABI-7 Date ABI - 7 assessed: 06/29/25 Feeling nervous, anxious, or on edge: 2 = More than half the days Not being able to stop or control worryin = Several days Worrying too much about different things: 2 = More than half the days Trouble relaxin = Several days Being so restless that it is hard to sit still: 0 = Not at all Becoming easily annoyed or irritable: 1 = Several days Feeling afraid as if something awful might happen: 1 = Several days Total ABI-7 score (0-4 normal; 5-9 mild; 10-14 moderate; 15-21 severe): 8 Source: Developed by Drs. Brad Yoo, Roula Petersen, Khadar Thompson and colleagues, with an educational juan from [employer]. ABI-7 Assessment Billing ABI-7 Assessment Tool: ABI-7 Assessment 02945 Review of Systems Const All systems reviewed & are unremarkable except as noted in HPI and below Card Denies chest pain at rest, Denies chest pain with activity, Denies edema, Denies irregular heart rhythm, Denies claudication, Denies dyspnea, Denies dyspnea on exertion, Denies orthopnea, Denies paroxysmal nocturnal dyspnea and Denies slow heart rate Resp Denies cough, Denies dyspnea and Denies dyspnea on exertion GI Denies abdominal pain, Denies change in bowel habits, Denies excessive flatus, Denies nausea and Denies vomiting Denies urinary hesitancy, Denies urinary incontinence and Denies urinary urgency Physical exam (Primary Care) Vital Signs: Last Vital Signs Temp 96.8 F 06/29/25 15:38 Pulse 70 06/29/25 15:38 Resp 16 06/29/25 15:38 BP 140/90 H 06/29/25 15:38 Pulse Ox 96 06/29/25 15:38 Oxygen Delivery Method Room Air 06/29/25 15:38 BMI result Body Mass Index 31.1 BMI Assessment/Plan discussion: High BMI High, discussed plan: lifestyle, weight reduction, dietary and physical activity Tobacco/Smoking Status: Tobacco use Status Tobacco use date assessed 06/29/25 06/29/25 15:53 Patient Tobacco Use Status Never used Tobacco 06/29/25 15:53 e-Cigarette/Vaping Use Never Used 06/29/25 15:53 PHQ-9: PHQ-9 Score PHQ-9: Total score 8 06/29/25 15:53 Depression Screening Interpretation: Positive Depression Screening Follow-up: Existing condition and Follow-up Visit Requested Thrive Assessment: Date of Thrive Assessment Date Thrive assessed 06/29/25 06/29/25 15:53 Currently or been in a relationship where the following occur: I choose not to answer HENMT Head: Yes normal to inspection, Yes normocephalic and Yes atraumatic Ears: external ears normal Eyes General: appearance normal, both eyes and all related structures Eyelids: Yes eyelids normal Conjunctivae: conjunctivae normal Neck Neck: Yes normal visual inspection and Yes supple Resp Effort & Inspection: normal respiratory effort Auscultation: clear to auscultation bilaterally Cardio Jugular venous distension: no JVD Rate: regular rate Rhythm: regular rhythm Heart sounds: S1 normal heart sound present and S2 normal heart sound present GI Inspection: Yes normal to inspection Palpation (GI): Soft to palpation and nontender Auscultation: normal bowel sounds Skin General skin exam: no rashes or lesions noted Neuro General: no focal motor deficits Extrem General: Yes full ROM Psych Appearance: grossly normal Coding Level of Care Code Est Pt Prev Care 18-39y(94018) Diagnoses Physical exam Z00.00 Myoclonic seizure disorder G40.409 Additional Codes ABI-7 Assessment Billing - ABI-7 Assessment Tool: ABI-7 Assessment 55805 ([id number]) Time Spent (min) 31 Assessment & Plan Assessment & Plan (1) Physical exam: Code(s): Z00.00 - Encounter for general adult medical examination without abnormal findings Category: Medical (2) Myoclonic seizure disorder: Code(s): G40.409 - Other generalized epilepsy and epileptic syndromes, not intractable, without status epilepticus Category: Medical Plan Plan 1. Physical Examination The patient presents for a routine physical exam. Blood work will be ordered to check cholesterol, sugar, kidney, and liver function. The patient can have these labs drawn along with his keto labs after the New Year. 2. Seizure Disorder The patient's seizure specialist recommended weight loss to help manage his seizures. He has been following a ketogenic diet, which was approved after his seizures recurred. He reports an increase in seizure activity, with 4-5 events since a recent episode of food poisoning. 3. Hypertension The patient has not been taking his losartan 25 mg as he was advised that weight loss would lower his blood pressure. His blood pressure is currently elevated. Advised the patient to resume taking losartan for now. The medication may be discontinued in the future if he continues to lose weight. 4. Depression A screening questionnaire indicated a mild level of depression. Options including counseling or medication were discussed. The patient was advised to consider these options and can follow up via the patient portal if he wishes to pursue treatment. Orders: Orders Comprehensive [place]. Panel Fast Today I10 - Essential (primary) hypertension Lipid Panel Today E78.5 - Hyperlipidemia, unspecified
[2025-06-29 15:38] VITALS: BP 140/90; PULSE 70; RESP 16; TEMP 36; O2SAT 96; BMI 31.1
--- OUTSIDE RECORDS SUMMARY | 2025-06-29 19:46 | XMS_ITS | Encounter Summary ---
Author Organization [facility] Address [address] [place] [address] Care Team Providers Care Top Precipitator Operator Name Role Phone Sonja Muniz Primary Care Provider [phone] Encounter Details Date Type Department Care Team (Late st Contact Info) Description 12/15/2021 myChart Message [facility] [address] [place] [address] Gisele Cerda MD [address] [place] [address] Follow up Appointment Social History Tobacco Use Types Packs/Day Years Used Date Smoking Tobacco: Never Smokeless Tobacco: Never Comments:: Alcohol Use Standard Drinks/Week Comments No 0 (1 standard drink = 0.6 oz pur e alcohol) Sex and Gender Information Value Date Recorded Sex Assigned at Male 08/21/2020 6:17 PM EST Legal Sex Male 3:43 AM EDT Gender Identity Male 08/21/2020 6:17 PM EST Sexual Orientation Straight 08/21/2020 6: 17 PM EST documented as of this encounter Plan of Treatment Not on file documented as of this encounter Visit Diagnoses Not on filedocumented in this encounter Care Teams Top Precipitator Operator Relationship Specialty Start Date End Date Sonja Muniz [address] [place] [address] [place] [address] PCP - General 01/31/17 documented as of this encounter
--- OUTSIDE RECORDS SUMMARY | 2025-06-29 19:46 | XMS_ITS | Clinical Summary ---
Author Organization [facility] Address [address] [place] [address] Care Team Providers Care Insulator Helper Name Role Phone Sonja Muniz MD Primary Care Provider [phone] Allergies Active Allergy Reactions Criticality Noted Date Comments Shellfish Protein-Containing Drug Products Hives,Swelling Medium 02/14/2023 Medications cetirizine (ZyrTEC) 10 MG tablet Take 1 tablet (10 mg total) by mouth. Active montelukast (SINGULAIR) 10 MG tablet Take 1 tablet (10 mg total) by mouth daily. 10/25/19 23 Active Ventolin HFA 108 (90 Base) MCG/ACT inhaler INHALE 2 PUFFS BY MOUTH EVERY 6 HOURS NEEDED FOR SHORTNESS OF BREATH OR WHEEZING 12/14/19 23 Active cholecalciferol (VITAMIN D3) 1000 units capsule Take 1 tablet by mouth daily. 08/01/19 23 Active ondansetron (ZOFRAN) 4 MG tablet 02/12/20 23 Active losartan (COZAAR) 25 MG tablet Take 1 tablet (25 mg total) by mouth daily. 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 Place tablet on tongue to dissolve. 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 02/14/2023 Encounters Date Type Department Care Team Description 05/11/2025 8:30 AM EDT Telemedicine EPILEPSY [id number] 85 [facility] [address] [place] [id number] Tal Blanco MD Depression, unspecified depression type (Primary Dx); 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); Obesity (BMI 30-39.9) 05/07/2025 12:56 AM EDT - 05/07/2025 5:03 AM EDT Emergency [facility] Emergency Department [address] [place] [id number] Arters, Alli M III, DO Seizure (HCC) (Primary Dx) Discharge Disposition: Home or Self Care 03/30/2025 3:00 PM EDT Telemedicine EPILEPSY [id number] [address] [id number] Tal Blanco MD 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 Jain-Papo Kidney Stones Maternal Aunt 2 Ada Kayley Jain Asthma Maternal Grandmother Ada M Papo Hypertension Maternal Grandmother Ada M Papo Asthma Mother Federica M Reilly Hypertension Mother Federica M Reilly Insomnia Mother Federica M Reilly Obesity Mother Federica M Reilly PONV Mother Federica M Reilly Propofol, Fe ntamyn Pneumonia Mother Federica M Reilly Diabetes Paternal Grandfather John Hager-Jamaica Hypertension Paternal Grandmother Lorena Maynor Diabetes Paternal Uncle John Hager-Maynor Relation Name Status Comments Brother 1 Ricardo Madan-Jain Alive Brother 2 Kalen Madan-Jain Alive Brother 3 Sushil Hager-Jain Alive Father Ricardo Hager-Maynor Alive Maternal Aunt 1 Davis W. Jain-Papo Alive Maternal Aunt 2 Ada Kayley Jain Alive Maternal Grandmother Ada M Papo Alive Mother Federica M Reilly Alive Paternal Grandfather John Madan-Jamaica Alive Paternal Grandmother Lorena Mcguire Alive Paternal Uncle John Hager-Maynor Alive Social History Tobacco Use Types Packs/Day Years Used Date Smoking Tobacco: Never Smokeless Tobacco: Never Tobacco Cessation:Counseling Given: Not Answered Alcohol Use Standard Drinks/Week Comments Never 0 [...] Orientation Heterosexual (straight) 05/07 1:00 AM EDT Last Filed Vital Signs Vital Sign Reading Time Taken Comments Blood Pressure 130/74 05/07/2025 2:58 AM EDT Pulse 79 05/07/2025 2:58 AM EDT Temperature 36.6 C (97.8 F) 05/07/2025 2:58 AM EDT Respiratory Rate 18 05/07/2025 2:58 AM EDT Oxygen Saturation 92% 05/07/2025 2:58 AM EDT Inhaled Oxygen Concentration - - Weight 99.3 kg (219 lb) 11/05/2024 1:47 PM EDT Height 182.9 cm (6') 11/05/2024 1:47 PM EDT Body Mass Index 29.7 11/05/2024 1:47 PM EDT Plan of Treatment Health Maintenance Due Date Last Done Comments Hepatitis C Virus Screening 1986 HIV Screening 12/24/1999 DTaP/Tdap/Td Vaccines (1 - Tdap) 2005 Hepatitis B Vaccines (1 of 3 - 19+ 3-dose series) 2005 COVID-19 Vaccine ( - season) 2025 06/27/2022, 06/26/2021 Influenza Vaccine Completed 04/16/2025, , 04/15/2023, Additional history exists HPV Vaccines (No Doses Required) Completed Pneumococcal Vaccine: Pediatric (0-5 Years) and At-Risk Patients (6 to 49 Years) Aged Out No longer eligible based on patient's age to complete this topic Procedures Procedure Name Priority Date/Time Associated Diagnosis Comments ECG 12-LEAD STAT 05/07/2025 2:05 AM EDT from Last 3 Months Results * ECG 12 lead (05/07/2025 2:05 AM EDT) Ventricular rate 78 BPM EKG [facility] Atrial rate 78 BPM EKG [facility] P-R interval 198 ms EKG [facility] QRS duration 96 ms EKG [facility] Q-T interval 386 ms EKG [facility] QTC calculation (Bazett) 440 ms EKG [facility] P axis 35 degrees EKG [facility] R axis -16 degrees EKG [facility] T axis 3 degrees EKG [facility] 05/07/2025 2:05 AM EDT Narrative EKG [facility] - 05/07/2025 10:17 PM EDT Normal sinus rhythm Normal ECG When compared with ECG of 11-Feb-2023 03:19, T wave inversion no longer evident in Anterior leads Confirmed by DO Fuentes Kyla ([id number]) on 05/07/2025 10:17:13 PM Procedure Note Yanci Fuentes DO - 05/07/2025 Normal sinus rhythm Normal ECG When compared with ECG of 11-Feb-2023 03:19, T wave inversion no longer evident in Anterior leads Confirmed by DO Fuentes Kyla ([id number]) on 05/07/2025 10:17:13 PM Alli Childress III, DO ECG ORDERABLES [facility] Last 3 Months Insurance [facility] MEDIC[facility] PART A & B [facility] PART A & B [employer] MEDICARE Care Teams Insulator Helper Relationship Specialty Start Date End Date Sonja Muniz MD [address] [place] [id number] PCP - General Family Medicine 01/11/23
--- OUTSIDE RECORDS SUMMARY | 2025-06-29 19:46 | XMS_ITS ---
Author Name [facility] Organization Unknown Results Test Name/Text Value Interpretation Date Range Source WBC 0.0 /HPF Normal 5 0 - 0 [facility] RBC 1.0 /HPF Above high normal 5 0 - 0 [facility] PH 6.5 Normal 5 5 - 8 [facility] APPEARANCE CLEAR Normal 5 - [facility] BILIRUBIN NEGATIVE Normal 5 - [facility] SPECIFIC GRAVITY 1.02 Normal 5 1.005 - 1.03 [facility] GLUCOSE NEG Normal 5 - [facility] BLOOD NEG Normal 5 - [facility] LEUK. ESTERASE NEG Normal 5 - [facility] UROBILINOGEN 0.2 MG/DL Normal 5 0 - 1 [facility] COLOR YELLOW Normal 5 - [facility] NITRITE NEG Normal 5 - [facility] PROTEIN NEG Normal 5 - [facility] KETONES >=80 Critically abnormal 05/07/20 2 5 - [facility] BARBITURATES Negative Normal 5 - [facility] COCAINE Negative Normal 5 - [facility] BENZODIAZEPINES Positive Critically abnormal 05/07 5 - [facility] AMPHETAMINES Negative Normal 5 - [facility] OPIATES Negative Normal 5 - [facility] PCP Negative Normal 5 - [facility] MARIJUANA Negative Normal 5 - [facility] GFRE 112.0 Normal 5 60 - [facility] MAGNESIUM 2.0 mg/dL Normal 5 1.6 - 2.6 [facility] PHOSPHOROUS < 2.4 Below low normal 5 2.4 - 5.1 [facility] LIPASE 30.0 U/L Normal 5 12 - 53 [facility] BUN/CREAT.RATIO 19.5 Normal 5 [facility] BUN 16.0 mg/dL Normal 5 9 - 23 [facility] AST (SGOT) 18.0 U/L Normal 5 0 - 34 [facility] GLUCOSE 118.0 mg/dL Above high normal 5 74 - 106 [facility] CHLORIDE 106.0 mmol/L Normal 5 98 - 107 [facility] SODIUM 140.0 mmol/L Normal 5 136 - 145 [facility] CREATININE 0.82 mg/dL Normal 5 0.7 - 1.3 [facility] POTASSIUM SERUM 4.1 mmol/L Normal 5 3.5 - 5.1 [facility] BILIRUBIN,TOTAL 0.3 mg/dL Normal 5 0.3 - 1.2 [facility] ALT (SGPT) 21.0 U/L Normal 5 10 - 49 [facility] ALBUMIN 5.0 g/dL Above high normal 5 3.2 - 4.8 [facility] ALKALINE PHOSPHATASE 69.0 U/L Normal 02 5 45 - 129 [facility] PROTEIN, TOTAL 7.4 g/dL Normal 5 5.7 - 8.2 [facility] CO2 22.0 mmol/L Normal 5 20 - 31 [facility] GLOBULIN 2.4 g/dL Normal 5 2.2 - 3.5 [facility] A/G RATIO 2.1 g/dL Normal 5 [facility] PATIENT FASTING? UNKNOWN Normal 5 [facility] ABSOLUTE GRANULOCYTES 12.2 K/uL Above high normal 1 5 2.2 - 7.3 [facility] NUCLEATED RBC 0.0 % Normal 5 0 - 0.2 [facility] ABSOLUTE MONOS 0.5 K/uL Normal 5 0.2 - 1.5 [facility] MCHC 32.1 g/dL Normal 5 31 - 36 [facility] IMMATURE GRANULOCYTES 0.0 % Normal 5 0 - 0.45 [facility] BASOPHILS 0.0 % Normal 5 0 - 2 [facility] ABSOLUTE LYMPHS 0.5 K/uL Below low normal 05/06/20 2 5 1.5 - 4.9 [facility] ABSOLUTE NUCLEATED RBC 0.0 K/uL Normal 5 0 - 0.012 [facility] LYMPHS 4.0 % Below low normal 5 16 - 50 [facility] MONOCYTES 4.0 % Normal 5 0 - 12 [facility] WBC 13.4 K/uL Above high normal 5 3.7 - 10.3 [facility] ABSOLUTE BASO 0.0 K/uL Normal 5 0 - 0.2 [facility] RDW 13.2 % Normal 5 11.1 - 13.3 [facility] MCH 28.0 PG Normal 5 27 - 34 [facility] HCT 48.9 % Normal 5 40 - 52 [facility] MCV 86.0 fL Normal 5 83 - 102 [facility] RBC 5.67 M/uL Normal 5 4.3 - 6 [facility] MPV 11.0 fL Normal 5 8 - 12 [facility] GRANULOCYTES 92.0 % Above high normal 5 23 - 78 [facility] ABSOLUTE EOS 0.0 K/uL Normal 5 0 - 0.7 [facility] ABSOLUTE IMMATURE GRANULOCYTES 0.1 K/uL Normal 5 0 - 0.3 [facility] EOSINOPHILS 0.0 % Normal 5 0 - 6 [facility] HGB 15.7 g/dL Normal 5 13.5 - 18 [facility] PLATELET COUNT 251.0 K/uL Normal 5 150 - 480 [facility] Glucose SerPl-mCnc 97.0 mg/dL Normal 07/10/202 5 65 - 99 [facility] BUN SerPl-mCnc 17.0 mg/dL Normal 5 7 - 25 [facility] eGFRcr SerPlBld CKD-EPI 2020 119.0 mL/min/1.73m2 Normal 5 - [facility] Bilirub SerPl-mCnc 0.5 mg/dL Normal 5 0.2 - 1.2 [facility] BUN/Creat SerPl SEE NOTE: 5 6 - 22 [facility] Prot SerPl-mCnc 6.8 g/dL Normal 5 6.1 - 8.1 [facility] Creat SerPl-mCnc 0.74 mg/dL Normal 5 0.6 - 1.26 [facility] ALT SerPl-cCnc 19.0 U/L Normal 5 9 - 46 [facility] CO2 SerPl-sCnc 24.0 mmol/L Normal 5 20 - 32 [facility] Albumin SerPl-mCnc 4.9 g/dL Normal 5 3.6 - 5.1 [facility] Potassium SerPl-sCnc 4.4 mmol/L Normal 02 5 3.5 - 5.3 [facility] Chloride SerPl-sCnc 108.0 mmol/L Normal 01/22/20 2 5 98 - 110 [facility] AST SerPl-cCnc 14.0 U/L Normal 5 10 - 40 [facility] Albumin/Glob SerPl 2.6 (calc) Above high normal 01/12 5 1 - 2.5 [facility] Globulin Ser Calc-mCnc 1.9 g/dL (calc) Normal 5 1.9 - 3.7 [facility] Sodium SerPl-sCnc 138.0 mmol/L Normal 5 135 - 146 [facility] Calcium SerPl-mCnc 9.8 mg/dL Normal 5 8.6 - 10.3 [facility] ALP SerPl-cCnc 73.0 U/L Normal 5 36 - 130 [facility] ZONISAMIDE 22.8 mcg/mL 5 10 - 40 [facility] RBC Auto 86.6 fL Normal 5 80 - 100 [facility] Eosinophil # Bld Auto 241.0 cells/uL Normal 01/12 5 15 - 500 [facility] Lymphocytes # Bld Auto 1288.0 cells/uL Normal 5 850 - 3900 [facility] Hct VFr Bld Auto 50.4 % Above high normal 5 38.5 - 50 [facility] Neutrophils NFr Bld Auto 65.9 % Normal 5 [facility] Monocytes NFr Bld Auto 5.9 % Normal 5 [facility] Monocytes # Bld Auto 330.0 cells/uL Normal 01/21 5 200 - 950 [facility] RDW RBC Auto 12.6 % Normal 5 11 - 15 [facility] WBC # Bld Auto 5.6 Thousand/uL Normal 5 3.8 - 10.8 [facility] RBC # Bld Auto 5.82 Million/uL Above high normal 01/21 5 4.2 - 5.8 [facility] Eosinophil NFr Bld Auto 4.3 % Normal 5 [facility] Basophils NFr Bld Auto 0.9 % Normal 5 [facility] Lymphocytes NFr Bld Auto 23.0 % Normal 5 [facility] MCHC RBC Auto-EntMCnc 32.3 g/dL Normal 5 32 - 36 [facility] Neutrophils # Bld Auto 3690.0 cells/uL Normal 5 1500 - 7800 [facility] MCH RBC Qn Auto 28.0 pg Normal 5 27 - 33 [facility] Hgb Bld-mCnc 16.3 g/dL Normal 5 13.2 - 17.1 [facility] PMV Bld Clive-Renard 10.6 fL Normal 5 7.5 - 12.5 [facility] Platelet # Bld Auto 247.0 Thousand/uL Normal 5 140 - 400 [facility] Basophils # Bld Auto 50.0 cells/uL Normal 5 0 - 200 [facility] Lacosamide SerPl-mCnc 9.5 mcg/mL 5 [facility] ABSOLUTE IMMATURE GRANULOCYTES 0.1 K/uL Normal 5 0 - 0.3 [facility] MPV 11.0 fL Normal 5 8 - 12 [facility] HCT 47.3 % Normal 5 40 - 52 [facility] RBC 5.5 M/uL Normal 5 4.3 - 6 [facility] ABSOLUTE MONOS 0.5 K/uL Normal 5 0.2 - 1.5 [facility] MCV 86.0 fL Normal 5 83 - 102 [facility] ABSOLUTE BASO 0.1 K/uL Normal 5 0 - 0.2 [facility] ABSOLUTE NUCLEATED RBC 0.0 K/uL Normal 5 0 - 0.012 [facility] HGB 15.3 g/dL Normal 5 13.5 - 18 [facility] RDW 13.3 % Normal 5 11.1 - 13.3 [facility] WBC 8.3 K/uL Normal 5 3.7 - 10.3 [facility] NUCLEATED RBC 0.0 % Normal 5 0 - 0.2 [facility] IMMATURE GRANULOCYTES 1.0 % Above high normal 0 5 0 - 0.45 [facility] PLATELET COUNT 269.0 K/uL Normal 5 150 - 480 [facility] EOSINOPHILS 5.0 % Normal 5 0 - 6 [facility] MCH 28.0 PG Normal 5 27 - 34 [facility] ABSOLUTE GRANULOCYTES 4.9 K/uL Normal 5 2.2 - 7.3 [facility] ABSOLUTE EOS 0.4 K/uL Normal 5 0 - 0.7 [facility] LYMPHS 29.0 % Normal 5 16 - 50 [facility] GRANULOCYTES 59.0 % Normal 5 23 - 78 [facility] MONOCYTES 6.0 % Normal 5 0 - 12 [facility] MCHC 32.3 g/dL Normal 5 31 - 36 [facility] ABSOLUTE LYMPHS 2.4 K/uL Normal 5 1.5 - 4.9 [facility] BASOPHILS 1.0 % Normal 5 0 - 2 [facility] D-DIMER HIGH SENSITIVITY < 230 Normal 5 0 - 243 [facility] GFRE 90.0 Normal 5 60 - [facility] CREATININE 0.99 mg/dL Normal 5 0.7 - 1.3 [facility] ALBUMIN 4.6 g/dL Normal 5 3.2 - 4.8 [facility] AST (SGOT) 14.0 U/L Normal 5 0 - 34 [facility] BILIRUBIN,TOTAL 0.3 mg/dL Normal 5 0.3 - 1.2 [facility] ALKALINE PHOSPHATASE 79.0 U/L Normal 02 5 45 - 129 [facility] BUN 17.0 mg/dL Normal 5 9 - 23 [facility] POTASSIUM SERUM 4.0 mmol/L Normal 5 3.5 - 5.1 [facility] SODIUM 138.0 mmol/L Normal 5 136 - 145 [facility] PROTEIN, TOTAL 6.5 g/dL Normal 5 5.7 - 8.2 [facility] GLOBULIN 1.9 g/dL Below low normal 5 2.2 - 3.5 [facility] BUN/CREAT.RATIO 17.2 Normal 5 [facility] CO2 24.0 mmol/L Normal 5 20 - 31 [facility] ALT (SGPT) 18.0 U/L Normal 5 10 - 49 [facility] A/G RATIO 2.4 g/dL Normal 5 [facility] CHLORIDE 108.0 mmol/L Above high normal 5 98 - 107 [facility] GLUCOSE 99.0 mg/dL Normal 5 74 - 106 [facility] PATIENT FASTING? UNKNOWN Normal 5 [facility] LIPASE 33.0 U/L Normal 5 12 - 53 [facility] TROPONIN I HIGH SENSITIVE 4.84 pg/mL Normal 5 2.5 - 45 [facility] N GONORRHOEAE URINE Negative Normal 09/25/19 2 5 - [facility] C TRACHOMATIS URINE Negative Normal 09/25/19 2 5 [facility] TRACHOMATIS URINE Negative Normal 07/03/20 2 4 - [facility] N GONORRHOEAE URINE Negative Normal 07/03/20 2 4 - [facility] GFRE 139.0 Normal 4 60 - [facility] GLUCOSE 99.0 mg/dL Normal 4 74 - 106 [facility] CHLORIDE 109.0 mmol/L Above high normal 4 98 - 107 [facility] BUN 10.0 mg/dL Normal 4 9 - 23 [facility] CREATININE 0.68 mg/dL Below low normal 4 0.7 - 1.3 [facility] SODIUM 139.0 mmol/L Normal 4 136 - 145 [facility] CO2 20.0 mmol/L Normal 4 20 - 31 [facility] POTASSIUM SERUM 5.0 mmol/L Normal 4 3.5 - 5.1 [facility] PATIENT FASTING? UNKNOWN Normal 4 [facility] RBC 0.0 /HPF Normal 4 0 - 0 [facility] WBC 1.0 /HPF Above high normal 4 0 - 0 [facility] BACTERIA TRACE Critically abnormal 07/01/20 2 4 - [facility] EPI CELLS OCCASIONAL Normal 4 [facility] BLOOD NEG Normal 4 - [facility] APPEARANCE CLEAR Normal 4 - [facility] KETONES NEGATIVE Normal 4 - [facility] BILIRUBIN NEGATIVE Normal 4 - [facility] GLUCOSE NEG Normal 4 - [facility] COLOR YELLOW Normal 4 - [facility] PH 5.5 Normal 4 5 - 8 [facility] PROTEIN NEG Normal 4 - [facility] UROBILINOGEN 0.2 MG/DL Normal 4 0 - 1 [facility] SPECIFIC GRAVITY 1.025 Normal 4 1.005 - 1.03 [facility] NITRITE NEG Normal 4 - [facility] LEUK. ESTERASE NEG Normal 4 - [facility] MONOCYTES 6.0 % Normal 4 0 - 12 [facility] MCV 85.0 fL Normal 4 83 - 102 [facility] EOSINOPHILS 6.0 % Normal 4 0 - 6 [facility] RDW 13.4 % Above high normal 4 11.1 - 13.3 [facility] HCT 50.7 % Normal 4 40 - 52 [facility] ABSOLUTE IMMATURE GRANULOCYTES 0.0 K/uL Normal 4 0 - 0.3 [facility] BASOPHILS 1.0 % Normal 4 0 - 2 [facility] PLATELET COUNT 239.0 K/uL Normal 4 150 - 480 [facility] MCH 28.0 PG Normal 4 27 - 34 [facility] ABSOLUTE MONOS 0.4 K/uL Normal 4 0.2 - 1.5 [facility] IMMATURE GRANULOCYTES 0.0 % Normal 4 0 - 0.45 [facility] ABSOLUTE EOS 0.3 K/uL Normal 4 0 - 0.7 [facility] WBC 5.7 K/uL Normal 4 3.7 - 10.3 [facility] GRANULOCYTES 66.0 % Normal 4 23 - 78 [facility] NUCLEATED RBC 0.0 % Normal 4 0 - 0.2 [facility] RBC 5.94 M/uL Normal 4 4.3 - 6 [facility] ABSOLUTE LYMPHS 1.2 K/uL Below low normal 07/01/20 2 4 1.5 - 4.9 [facility] ABSOLUTE GRANULOCYTES 3.8 K/uL Normal 4 2.2 - 7.3 [facility] MPV 11.0 fL Normal 4 8 - 12 [facility] HGB 16.8 g/dL Normal 4 13.5 - 18 [facility] ABSOLUTE BASO 0.1 K/uL Normal 4 0 - 0.2 [facility] MCHC 33.1 g/dL Normal 4 31 - 36 [facility] ABSOLUTE NUCLEATED RBC 0.0 K/uL Normal 4 0 - 0.012 [facility] LYMPHS 21.0 % Normal 4 16 - 50 [facility] History of Medication Use Medication Directions Dispensed Refills Start Date End Date Stat ondansetron (ZOFRAN-ODT) 4 MG disintegrating tablet Take 1 tablet (4 mg total) by mouth 3 times daily (every 8 hours) as needed for nausea or vomiting. Place tablet on tongue to dissolve. 05/07/2025 active clonazePAM (KlonoPIN) 0.5 MG tablet TAKE 1 TABLET(0.5 MG) BY MOUTH TWICE DAILY NEEDED FOR SEIZURES 04/29/2025 active zonisamide (ZONEGRAN) 100 MG capsule Take 5 capsules (500 mg total) by mouth daily. 01/21/2025 active ketoconazole (NIZORAL) 2 % shampoo APPLY TO SCALP LEAVE ON FOR 10 MINUTES LATHER AND RINSE FOLLOWED BY HYDRATING SHAMPOO USE DIRECTED 2 TO 3 TIMES A WEEK 10/14/2024 active Midazolam (Nayzilam) 5 MG/0.1ML Solution USE 1 SPRAY INTO LEFT NOSTRIL NEEDED FOR MYCOLONUS PRECEDING GTC, OR SOON GTC STARTS 07/16/2024 5 active naproxen (NAPROSYN) 375 MG tablet TAKE 1 TABLET BY MOUTH TWICE DAILY WITH FOOD NEEDED FOR PAIN 07/01/2024 5 aborted tiZANidine (ZANAFLEX) 4 MG tablet 07/01/2024 active cefuroxime (CEFTIN) 250 mg tablet Take 1 tablet (250 mg total) by mouth 2 (two) times daily for 7 days. 06/18/2024 4 active mupirocin (BACTROBAN) 2 % ointment APPLY TOPICALLY IN EACH NOSTRIL TWICE DAILY FOR 5 DAYS 05/14/2024 5 active clonazePAM (KlonoPIN) 0.5 MG tablet TAKE 1 TABLET BY MOUTH TWICE DAILY NEEDED 12/10/2023 4 active zonisamide (ZONEGRAN) 100 MG capsule Take 4 capsules (400 mg total) by mouth nightly. 05/26/2023 4 active divalproex er (DEPAKOTE ER) 250 MG 24 hr tablet Take 1 tablet (250 mg total) by mouth daily. 05/26/2023 4 active zonisamide (ZONEGRAN) 100 MG capsule Take 3 capsules (300 mg total) by mouth nightly. 05/21/2023 3 active lacosamide 200 mg Tablet 200 mg 2 (two) times daily 03/29/2023 active Lacosamide (VIMPAT) 200 MG Tab tablet TAKE 1 TABLET AT 2 PM, AND 1 TABLET AT 11 PM 03/27/2023 5 active NAYZILAM 5 mg/spray (0.1 mL) [place], Non-Aerosol 03/19/2023 active montelukast (SINGULAIR) 10 mg tablet Take 10 mg by mouth daily 03/02/2023 active loratadine (CLARITIN) 10 mg tablet Take 10 mg by mouth daily 02/26/2023 active zonisamide (ZONEGRAN) 100 MG capsule Take 300 mg by mouth nightly 02/19/2023 active Midazolam 5 MG/0.1ML Solution 1 spray into one nostril (left) as needed (for mycolonus preceding GTC, or as soon as GTC starts.). 02/14/2023 5 active lacosamide (VIMPAT) 100 MG Tab tablet Take 1 tablet (100 mg total) by mouth every 12 (twelve) hours around the clock. Week 1: lacosamide 100 mg at 11 PM. Week 2: lacosamide 100 mg at 2 PM, and 100 mg at 11 PM. Week 3: lacosamide 100 mg at 2 PM, and 200 mg at 11 PM. Week 4 and after: lacosamide 200 mg at 2 PM, and 200 mg at 11 PM. 02/14/2023 4 active divalproex (DEPAKOTE ER) 250 MG extended release tablet Take 750 mg by mouth nightly 02/11/2023 3 active divalproex er (DEPAKOTE ER) 250 MG 24 hr tablet Take 3 tablets (750 mg total) by mouth daily. 02/11/2023 3 active ondansetron (ZOFRAN) 4 MG tablet 02/11/2023 active ondansetron (ZOFRAN) 4 MG tablet 02/11/2023 active losartan (COZAAR) 25 MG tablet Take 25 mg by mouth daily 02/01/2023 active losartan (COZAAR) 25 MG tablet Take 1 tablet (25 mg total) by mouth daily. 02/01/2023 active clonazePAM (KlonoPIN) 1 MG tablet TAKE 2 TABLETS BY MOUTH EVERY NIGHT 12/21/2022 5 active clonazePAM (KLONOPIN) 1 MG tablet Take 2 mg by mouth 12/21/2022 4 active clonazePAM (KLONOPIN) 0.5 MG tablet 12/21/2022 active albuterol (VENTOLIN HFA) 90 mcg/actuation inhaler INHALE 2 PUFFS BY MOUTH EVERY 6 HOURS NEEDED FOR SHORTNESS OF BREATH OR WHEEZING 12/13/2022 active Ventolin HFA 108 (90 Base) MCG/ACT inhaler INHALE 2 PUFFS BY MOUTH EVERY 6 HOURS NEEDED FOR SHORTNESS OF BREATH OR WHEEZING 12/13/2022 active zonisamide (ZONEGRAN) 100 MG capsule Take 1 capsule (100 mg total) by mouth 3 (three) times a day. 10/29/2022 3 active prochlorperazine (COMPAZINE) 5 MG tablet 10/27/2022 active montelukast (SINGULAIR) 10 MG tablet Take 1 tablet (10 mg total) by mouth daily. 10/24/2022 active carBAMazepine (TEGretol XR) 400 MG 12 hr tablet TAKE 1 TABLET(400 MG) BY MOUTH EVERY NIGHT AT BEDTIME 08/01/2022 3 active cholecalciferol (VITAMIN D3) 1000 units capsule Take 1 tablet by mouth daily. 08/01/2022 active cholecalciferol (VITAMIN D3) 25 mcg (1,000 unit) capsule Take 1 tablet by mouth daily 08/01/2022 active No medication information recorded active albuterol (ACCUNEB) 0.63 mg/3 mL nebulizer solution Take 3 mLs by nebulization every 6 (six) hours as needed for shortness of breath. active cetirizine (ZyrTEC) 10 MG tablet Take 1 tablet (10 mg total) by mouth. active cetirizine (ZYRTEC) 10 MG tablet Take 10 mg by mouth active clonazePAM (KLONOPIN) 1 mg tablet Take 1 tablet (1 mg total) by mouth 2 (two) times daily. active lacosamide 50 mg (14)- 100 mg (14) DsPk Take by mouth. acti ve losartan (COZAAR) 50 mg tablet Take 1 tablet (50 mg total) by mouth daily. active zonisamide (ZONEGRAN) 25 mg capsule Take by mouth. 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 2023-02-14 ProblemAct [facility] Depression, unspecified depression type active EncounterDiagnosisAct [facility] Glossitis active 2024-01-14 ProblemAct [facility] Acute cystitis without hematuria active EncounterDiagnosisAct [facility] Class 3 severe obesity with body mass index (BMI) of 40.0 to 44.9 in adult, unspecified obesity type, unspecified whether serious comorbidity present active 2023-04-18 ProblemAct [facility] Intractable juvenile myoclonic epilepsy active 2023-04-18 ProblemAct [facility] Primary hypertension active 2023-04-18 ProblemAct [facility] Encounters Encounter Type Encounter Reason Primary Diagnosis Location Date Ambulatory [facility] ([facility]) 06/28/2025 Ambulatory [facility] ([facility]) 05/26/2025 Ambulatory Juvenile myoclonic epilepsy, intractable, without status epilepticus Juvenile myoclonic epilepsy, intractable, without status epilepticus [facility] ([facility]) 05/26/2025 Ambulatory Depression, unspecified Depression, unspecified [facility] 05/11/2025 Emergency Unspecified convulsions Unspecified convulsions [facility] 05/07/2025 Emergency VOMITING VOMITING Located within [facility]. 05/06/2025 Ambulatory [facility] ([facility]) 05/03/2025 Ambulatory Juvenile myoclonic epilepsy, intractable, with status epilepticus Juvenile myoclonic epilepsy, intractable, with status epilepticus [facility] 03/30/2025 Ambulatory [facility] ([facility]) 03/22/2025 Ambulatory [facility] ([facility]) 02/15/2025 Emergency BACK PAIN/HURTS TO LOOK DOWN BACK PAIN/HURTS TO LOOK DOWN [facility] 12/21/2024 Ambulatory [facility] 12/17/2024 Emergency LEFT SIDED CHEST/SHOULDER/AND ARM PAIN X 2 [facility] LEFT SIDED CHEST/SHOULDER/AND ARM PAIN X 2 [facility] 12/10/2024 Ambulatory Sleep apnea, unspecified Sleep apnea, unspecified [facility] 11/26/2024 Ambulatory Pelvic and perineal pain Pelvic and perineal pain [facility] 11/05/2024 Emergency POST OP HERNIA PAIN RT AREA GROIN POST OP HERNIA PAIN RT AREA GROIN [facility] 09/23/2024 Ambulatory RIGHT INGUINAL HERNIA RIGHT INGUINAL HERNIA [facility] 07/30/2024 Ambulatory [facility] 07/27/2024 Emergency ABDOMINAL PAIN ABDOMINAL PAIN [facility] 07/01/2024 Ambulatory [facility] 06/26/2024 Ambulatory Acute cystitis Acute cystitis [facility] 06/25/2024 Ambulatory Acute cystitis Acute cystitis [facility] 06/25/2024 Ambulatory Acute cystitis Acute cystitis [facility] 06/18/2024 Ambulatory Cutaneous abscess, unspecified Cutaneous abscess, unspecified [facility] 03/23/2024 Emergency WOUND CHECK, BUTTOCK AREA-R WOUND CHECK, BUTTOCK AREA-R [facility] 01/31/2024 Emergency BUTTOX PAIN BUTTOX PAIN [facility] 01/09/2024 Ambulatory [facility] 12/10/2023 Ambulatory Depression, unspecified Depression, unspecified [facility] 05/27/2023 Ambulatory Juvenile myoclonic epilepsy, intractable, with status epilepticus Juvenile myoclonic epilepsy, intractable, with status epilepticus [facility] 05/21/2023 Ambulatory Depression, unspecified Depression, unspecified [facility] 04/26/2023 Ambulatory Depression, unspecified Depression, unspecified [facility] 04/19/2023 Ambulatory Juvenile myoclonic epilepsy, intractable, without status epilepticus Juvenile myoclonic epilepsy, intractable, without status epilepticus [facility] ([facility]) 04/15/2023 Ambulatory Depression, unspecified Depression, unspecified [facility] 03/19/2023 Ambulatory Depression, unspecified Depression, unspecified [facility] 03/11/2023 Ambulatory Depression, unspecified Depression, unspecified [facility] 03/04/2023 Ambulatory Juvenile myoclon ic epilepsy, intractable, with status epilepticus [facility] 02/14/2023 Emergency Unspecified convulsions [facility] 02/11/2023 Ambulatory Unspecified injury of left foot, initial encounter Unspecified injury of left foot, initial encounter [facility] 01/11/2023 Ambulatory Unspecified inju ry of left foot, initial encounter [facility] 01/11/2023 Care Team Organization Name Specialty Phone Email Start Date End Da te [facility] directory,Not Primary Care 05/06/2025 [facility] Historical CCDA backload 04/30/2025 [facility] BLANCO Primary Care 03/[facility]/2025 [facility] [employer] [facility] Narla Primary Care 03/01/2025 [facility] - Xuan CCDA 12/25/2024 [facility] Un[facility] ADT 12/25/2024 [facility] 12/17/2024 [facility] Xuan CCDA 12/14/2024 12/16/2024 [facility] MAMIE MULTANI Primary Care 11/07/2024 06/09/2025 [facility] Not directory Primary Care 07/29/2024 [facility] Patient remember Primary Care 07/22/2024 [facility] remember,Patient Primary Care 07/12/2024 [facility] Sonja [place]-Koby Primary Care [facility] 03/28/2024 [facility] 02/28/2024 [facility] 02/20/2024 [facility] Not Found Primary Care 01/16/2024 [facility] Not Found Primary Care 01/14/2024 [facility] remember,Patient Primary Care 01/09/20242024 [facility] Patient remember Primary Care 01/09/2024 [facility] Not directory Primary Care 01/09/2024 [facility] 11/12/2023 [facility] 05/17/2023 025 [facility] ([facility] ALESIA BLANCO Primary Care 04/15/2023 [facility] Alesia Blanco Primary Care 04/15/2023 [facility] SONJA JACOBO Primary Care 01/11/20232024 [facility] SONJA MULTANI Primary Care 01/11/20232022 [facility] 07/19/2022 [facility] 05/16/2022
--- OUTSIDE RECORDS SUMMARY | 2025-06-29 19:46 | XMS_ITS | Clinical Summary ---
Author Organization [facility] Address [address] [place], [place] [id number] Care Team Providers Care Recoating Machine Operator Name Role Phone Sonja Muniz MD Primary Care Provider Allergies Active Allergy Reactions Criticality Noted Date Comments Shellfish Derived Hives,Rash,Swelling Medium 3 Medications cetirizine (Zyrtec) 10 mg tablet Take 1 tablet (10 mg total) by mouth 1 (one) time each day. Active MULTIVITAMIN ORAL Take 1 tablet by mouth 1 (one) time each day. Active cholecalciferol , vitamin D3, (VITAMIN D3 ORAL) take 1 capsule by mouth every day 3 Active albuterol (Proventil;Vent rod;Proair) 90 mcg/actuation inhaler Inhale 2 puffs every 6 (six) hours if needed. Active clonazePAM (Klonopin) 1 mg tablet Take 2 tablets (2 mg total) by mouth at bed time. 4 Active hydroCHLOROthia zide 12.5 mg capsule Take 1 capsule (12.5 mg total) by mouth. Active losartan (Cozaar) 25 mg tablet 4 Active lacosamide (Vimpat) 200 mg tablet tablet Take 2 tablets (400 mg total) by mouth. 3 Active Nayzilam 5 mg/spray (0.1 mL) spray,non-aeros ol Administer into affected nostril(s). 3 Active montelukast (Singulair) 10 mg tablet Take 1 tablet (10 mg total) by mouth 1 (one) time each day. Active ondansetron (Zofran) 4 mg tablet TAKE 1 TABLET(4 MG) BY MOUTH EVERY 8 HOURS NEEDED FOR NAUSEA OR VOMITING 4 Active Social History Tobacco Use Types Packs/Day Years Used Date Smoking Tobacco: Never Smokeless Tobacco: Never Sex and Gender Information Value Date Recorded Sex Assigned at Not on file Legal Sex Male 12:51 PM EDT Gender Identity Not on file Sexual Orientation Not on file Last Filed Vital Signs Vital Sign Reading Time Taken Comments Blood Pressure 138/100 03/23/2024 2:59 PM EDT Pulse 100 03/23/2024 2:59 PM EDT Temperature 36.1 C (97 F) 03/23/2024 2:59 PM EDT Respiratory Rate 18 03/23/2024 2:59 PM EDT Oxygen Saturation 97% 03/23/2024 2:59 PM EDT Inhaled Oxygen Concentration - - Weight 112.9 kg (248 lb 12.8 oz) 03/23/2024 2:59 PM EDT Height - - Body Mass Index - - Plan of Treatment Scheduled Referrals Name Type Priority Associated Diagnoses Orde r Schedule Ambulatory referral to Infectious Disease Outpatient Referral Routine Cutaneous abscess, unspecified Expected: 02/20/2024 (Approximate), Expires: 02/19/2025 Health Maintenance Due Date Last Done Comments Annual Physical Exam 2004 Tdap and Td Vaccines Adult 2005 COVID-19 Vaccine (2024-2 6 season) 2025 06/27/2022, 06/26/2021 Influenza Vaccine (#1) 2025 , 04/15/2023, 06/12/2022 HIB Vaccines Aged Out No longer eligi ble based on patient's age to complete this topic HPV Vaccines (No Doses Required) Completed Hepatitis A Vaccines Aged Out No long er eligible based on patient's age to complete this topic IPV Vaccines Aged Out No longer eligi ble based on patient's age to complete this topic Meningococcal Vaccine Aged Out No robbi joanne eligible based on patient's age to complete this topic Pneumococcal Vaccine: Peds ( 0 to 5 Yrs) and At-Risk Pts (6 to 49 Yrs) Aged Out No longer eligible b ased on patient's age to complete this topic RSV <20 Months Aged Out No longer rik gible based on patient's age to complete this topic Insurance [employer] MEDICAID IN-STATE Care Teams Recoating Machine Operator Relationship Specialty Start Date End Date Sonja Muniz MD [address] [place] [address] PCP - General 02/20/24
--- OUTSIDE RECORDS SUMMARY | 2025-06-29 19:46 | XMS_ITS | Clinical Summary ---
Author Organization [facility] Prior to 12/12/24 Address [address] [place] [address] Care Team Providers Care Lift Truck Operator Name Role Phone Sonja Muniz MD Primary Care Provid er Allergies Active Allergy Reactions Criticality Noted Date Comments Shellfish Allergy Anaphylaxis High 01/28/2024 Medications Medication Sig Dispensed Refills Start Date End Date Status Lacosamide (VIMPAT) 200 MG TABS tablet Take 2 tablets (400 mg total) by mouth 2 (two) times a day. 0 12/18/2023 Active montelukast (SINGULAIR) 10 MG tablet Take 1 tablet (10 mg total) by mouth daily. 0 11/27/2023 Active zonisamide (ZONEGRAN) 100 MG capsule Take 3 capsules (300 mg total) by mouth every night at bedtime. 0 01/02/2024 Active clonazePAM (KlonoPIN) 2 MG tablet Take 1 tablet (2 mg total) by mouth every night at bedtime. 0 Active Cetirizine HCl (ZYRTEC ALLERGY PO) Take 10 mg by mouth daily. 0 Active Vitamin D, Cholecalciferol, 25 MCG (1000 UT) TABS Take 1 tablet by mouth daily. 0 Active Multiple Vitamins-Minerals (MULTIVITAMIN ADULTS PO) Take 1 tablet by mouth daily. 0 Active hydroCHLOROthiazide (MICROZIDE) 12.5 MG capsule Take 1 capsule (12.5 mg total) by mouth daily. 0 Active Midazolam (Nayzilam) 5 MG/0.1ML SOLN spray or apply inside Nose. 0 Active albuterol 108 (90 Base) MCG/ACT inhaler Inhale 2 puffs into the lungs every 6 (six) hours as needed for wheezing. 0 Active Social History Tobacco Use Types Packs/Day Years Used Date Smoking Tobacco: Never Smokeless Tobacco: Never Tobacco Cessation:Counseling Given: Not Answered Alcohol Use Standard Drinks/Week Comments Never 0 (1 standard drink = 0.6 oz pur e alcohol) Sex and Gender Information Value Date Recorded Sex Assigned at Not on file Gender Identity Not on file Sexual Orientation Not on file Job Start Date Occupation Industry Not on file Not on file Not on file Last Filed Vital Signs Vital Sign Reading Time Taken Comments Blood Pressure 140/92 01/28/2024 3:39 PM EDT Pulse 80 01/28/2024 3:39 PM EDT Temperature - - Respiratory Rate - - Oxygen Saturation - - Inhaled Oxygen Concentration - - Weight 120.2 kg (265 lb) 01/28/2024 3:39 PM EDT Height 182.9 cm (6') 01/28/2024 3:39 PM EDT Body Mass Index 35.94 01/28/2024 3:39 PM EDT Plan of Treatment Health Maintenance Due Date Last Done Comments Hepatitis B Vaccines (1 of 3 - 3-dose series) 1986 Hepatitis C Screening 1986 COVID-19 Vaccine (#1) 06/24/1987 Depression Screening 1998 Preventative Health Evaluation 2004 DTap / Tdap / Td (1 - Tdap) 2005 Influenza Vaccine (#1) 2025 Pneumococcal Vaccine Aged Out No long er eligible based on patient's age to complete this topic RSV Ped < 20 months Aged Out No longe r eligible based on patient's age to complete this topic Care Teams Lift Truck Operator Relationship Specialty Start Date End Date Sonja Muniz MD [address] [facility] , [address] [place] [address] Physician Associ D/B/A: [facility] [place] [id number] PCP - General Internal Medicine 01/28/24
--- OUTSIDE RECORDS SUMMARY | 2025-06-29 19:46 | XMS_ITS | Encounter Summary ---
Author Organization [facility] Address [address] [place] [address] Care Team Providers Care Parking Officer Name Role Phone Sonja Muniz MD Primary Care Provider Encounter Details Date Type Department Care Team (Late st Contact Info) Description 02/11/2023 Documentation [facility] [id number] [place] [address] Alli Childress III, DO [address] [place] [address] Social History Tobacco Use Types Packs/Day Years Used Date Smoking Tobacco: Never Assessed Sex and Gender Information Value Date Recorded Sex Assigned at Male 01/11/2023 3:06 PM EDT Legal Sex Male 3:00 PM EDT Gender Identity Male 01/11/2023 3:06 PM EDT Sexual Orientation Choose not to disclose 2024 1:00 AM EDT Sexual Orientation Heterosexual (straight) 05/07 1:00 AM EDT documented as of this encounter Plan of Treatment Not on file documented as of this encounter Visit Diagnoses Not on filedocumented in this encounter Care Teams Parking Officer Relationship Specialty Start Date End Date Sonja Muniz MD [address] [place] [address] PCP - General Family Medicine 01/11/23 documented as of this encounter
--- OUTSIDE RECORDS SUMMARY | 2025-06-29 19:46 | XMS_ITS | Clinical Summary ---
Author Organization [facility] Address [address] [place] [address] Care Team Providers Care Audio Video Repairer Name Role Phone Tal Blanco MD Primary Care Provider [phone] Source Comments Please note that some or all of the patient's information could have additional privacy protections. State laws allow health care providers to render certain types of treatment to minors without parental consent. Please do not assume that this information can be shared solely by obtaining just the consent of the patient's parent/guardian. Please determine if all or part of the patient's care was rendered without parent/guardian involvement. And, if so, obtain the minor's consent prior to disclosure.[facility] Allergies Active Allergy Reactions Criticality Noted Date Comments Shellfish Derived Hives,Swelling Medium 02/14/2023 Medications albuterol (VENTOLIN HFA) 90 mcg/actuation inhaler 12/14/19 23 Active cetirizine (ZYRTEC) 10 MG tablet Take 10 mg by mouth Active cholecalciferol (VITAMIN D3) 25 mcg (1,000 unit) capsule Take 1 tablet by mouth in the morning. 08/01/19 23 Active lacosamide 200 mg Tablet 200 mg in the morning and 200 mg before bedtime. Take at 1 Pm and 11 PM. 03/29/20 23 Active losartan (COZAAR) 25 MG tablet Take 25 mg by mouth in the morning. 02/02/20 23 Active NAYZILAM 5 mg/spray (0.1 mL) [place], Non-Aerosol 03/19/20 23 Active montelukast (SINGULAIR) 10 mg tablet Take 10 mg by mouth in the morning. 03/02/20 23 Active ondansetron (ZOFRAN) 4 MG tablet 02/12/20 23 Active zonisamide (ZONEGRAN) 100 MG capsule Take 300 mg by mouth nightly Taking 4 pills per day 400 mg per day 02/20/20 23 Active citric acid-sodium citrate (BICITRA) 500-334 mg/5 mL solutionIndication s:Patient on ketogenic diet Take 15 mLs by mouth in the morning and 15 mLs at noon and 15 mLs in the evening. Take with meals. 473 mL 5 03/08/20 25 Active Additional Information Patient not taking.Reported on 06/28/2025 multivitamin tablet Take 1 tablet by mouth in the morning. Centrum . Active fluticasone propionate (FLONASE) 50 mcg/actuation nasal spray 1 spray by Nasal route in the morning. Active KETONE URINE TEST stripIndications:I ntractable juvenile myoclonic epilepsy,Patient on ketogenic diet 1 strip by Other route as needed Take urine ketones daily in pm 50 strip 3 03/25/20 25 Active sodium chloride (BHAT LITE SALT) Salt meals Active KETOVIE 3.4 gram-159 kcal/100 mL Liquid 05/07/20 25 Active ondansetron (ZOFRAN-ODT) 4 MG disintegrating tablet Take 4 mg by mouth every 8 (eight) hours as needed 05/07/20 25 Active clonazePAM (KLONOPIN) 1 MG tablet Take 2 mg by mouth every evening 02/24/20 25 Active potassium bicarbonate (EFFER-K) 25 MEQ effervescent tabletIndications: Intractable juvenile myoclonic epilepsy,At high risk for kidney injury,At risk for side effect of medication,Ketogen ic diet Take 1 tablet (25 mEq) by mouth in the morning and 1 tablet (25 mEq) before bedtime. 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 Primary hypertension 04/18/2023 Class 3 severe obesity with body mass index (BMI) of 40.0 to 44.9 in adult, unspecified obesity type, unspecified whether serious comorbidity present 04/18/2023 Encounters Date Type Department Care Team Description 06/28/2025 11:00 AM EST Clinical Support [address] Ketogenic diet (Primary Dx); Encounter for monitoring of ketogenic diet; Seizures 06/21/[address] [address] Destinee Willson RN 05/28/2025 [place] [address] Kathie Koenig MD CBC auto differential, Comprehensive metabolic panel (CMP): Na, K, CL, Co2, Gluc, Ca, BUN, Creat, B/C, T.Prot, Alb, Glb, A/G, AST, ALT, ALKP, T.Bili, Phosphorus, Additional followed-up results: 8 05/26/2025 10:00 AM EST Office Visit [place] [phone] Kathie Koenig MD Intractable juvenile myoclonic epilepsy (Primary Dx); At high risk for kidney injury; At risk for side effect of medication; Ketogenic diet 05/26/2025 10:00 AM EST Clinical Support [address] Modified Ketogenic diet (Primary Dx); Encounter for monitoring of ketogenic diet; Intractable juvenile myoclonic epilepsy 05/21/[address] [address] Rebecca Garibay MA 05/03/2025 2:00 PM EDT Clinical Support [address] Modified Ketogenic diet (Primary Dx); Encounter for monitoring of ketogenic diet; Intractable juvenile myoclonic epilepsy; Seizures 05/03/[address] [address] Chris Dunn RN 04/07/2025 Telephone [facility] [place] [address] Abigail Alvares MA 03/30/2025 Telephone [facility] Neurology, [place] [address] Rosi Hull RN from Last 3 Months Social History Tobacco Use Types Packs/Day Years Used Date Smoking Tobacco: Never Smokeless Tobacco: Never Tobacco Cessation:Counseling Given: Not Answered Sex and Gender Information Value Date Recorded Sex Assigned at Male 04/15/2023 2:17 PM EDT Legal Sex Male 8:22 AM EDT Gender Identity Male 04/15/2023 2:17 PM EDT Sexual Orientation Not on file Last Filed Vital Signs Vital Sign Reading Time Taken Comments Blood Pressure 132/88 06/28/2025 11:03 AM EST Pulse 75 05/26/2025 10:14 AM EST Temperature - - Respiratory Rate - - Oxygen Saturation 98% 05/26/2025 10:14 AM EST Inhaled Oxygen Concentration - - Weight 104 kg (229 lb 4.5 oz) 06/28/2025 11:03 A M EST Height 178.5 cm (5' 10.28 ) 06/28/2025 11:03 AM EST Body Mass Index 32.64 06/28/2025 11:03 AM EST Plan of Treatment Upcoming Encounters Date Type Department Care Team (Late st Contact Info) Description 11/08/2025 8:40 AM EDT Office Visit [facility], [place] [phone] Kathie Koenig MD [address] [place] [phone] 11/08/2025 9:00 AM EDT Clinical Support [facility] [place] [address] [place] [phone] Health Maintenance Due Date Last Done Comments DTaP/TDAP/TD VACCINES (1 - Tdap) 1993 ADOLESCENT HIV SCREENING 12/24/1999 COVID-19 Vaccine (2023-2 5 season) 2025 INFLUENZA (#1) 2025 NIRSEVIMAB VACCINES UNDER 8 MONTHS Aged Out No longer eligible based on patient's age to complete this topic Procedures Procedure Name Priority Date/Time Associated Diagnosis Comments CARNITINE, FREE AND TOTAL Routine 05/24/2025 2:15 PM EST Intractable juvenile myoclonic epilepsy Patient on ketogenic diet CALCIUM, URINE, RANDOM, WITH CREATININE Routine 05/24/2025 2:15 PM EST Intractable juvenile myoclonic epilepsy Patient on ketogenic diet URINALYSIS WITH REFLEX TO MICROSCOPIC Routine 05/24/2025 2:15 PM EST Intractable juvenile myoclonic epilepsy Patient on ketogenic diet URIC ACID Routine 05/24/2025 2:15 PM EST Intractable juvenile myoclonic epilepsy Patient on ketogenic diet BETA-HYDROXYBUTYRATE Routine 05/24/2025 2:15 PM EST Intractable juvenile myoclonic epilepsy Patient on ketogenic diet VITAMIN D,25-OH (HYDROXY), TOTAL Routine 05/24/2025 2:15 PM EST Intractable juvenile myoclonic epilepsy Patient on ketogenic diet LIPID PANEL Routine 05/24/2025 2:15 PM EST Intractable juvenile myoclonic epilepsy Patient on ketogenic diet MAGNESIUM Routine 05/24/2025 2:15 PM EST Intractable juvenile myoclonic epilepsy Patient on ketogenic diet PHOSPHORUS Routine 05/24/2025 2:15 PM EST Intractable juvenile myoclonic epilepsy Patient on ketogenic diet COMPREHENSIVE METABOLIC PANEL Routine 05/24/2025 2:15 PM EST Intractable juvenile myoclonic epilepsy Patient on ketogenic diet CBC WITH AUTO DIFFERENTIAL Routine 05/24/2025 2:15 PM EST Intractable juvenile myoclonic epilepsy Patient on ketogenic diet from Last 3 Months Results * Urinalysis with Reflex to Microscopic (05/24/2025 2:15 PM EST) Color YELLOW YELLOW [facility] Appearance CLEAR CLEAR [facility] Specific [place], UA 1.013 1.001 - 1.035 [facility] pH, UA 5.5 5.0 - 8.0 [facility] Glucose NEGATIVE NEGATIVE [facility] Bilirubin, UA NEGATIVE NEGATIVE [facility] Ketones, UA NEGATIVE NEGATIVE [facility] RBC, UA NEGATIVE NEGATIVE [facility] Protein, UA NEGATIVE NEGATIVE [facility] Nitrite, UA NEGATIVE NEGATIVE [facility] Leukocytes, UA NEGATIVE NEGATIVE [facility] Urine 05/24/2025 2:15 PM EST 05/24/2025 2:15 PM EST Narrative [facility] - 05/28/2025 1:55 PM EST FASTING:YES FASTING: YES Resulting Agency Comment Performing Organization Information: Site ID: [id number] Name: [facility] Address: [address] [place] [phone] Director: Janis Gallego M.D. us Kathie Koenig MD URINE ORDERABLES Final Result [facility] [address] [place] [address] [place] [address] [facility] [address] [place] [phone] * [place], Urine, Random, with Creatinine (05/24/2025 2:15 PM EST) [place] Creatinine Ratio 143 10 - 240 mg/g creat [facility] [place], Ur 9.0 See Note: mg/dL [facility] Comment: Reference Range: Reference Range Not established Creatinine, Urine 63 20 - 320 mg/dL [facility] 05/24/2025 2:15 PM EST 05/24/2025 2:15 PM EST Narrative [facility] - 05/28/2025 1:55 PM EST FASTING:YES FASTING: YES Resulting Agency Comment Performing Organization Information: Site ID: [id number] Name: [facility] Address: [address] [place] [phone] Director: Janis Gallego M.D. us Kathie Koenig MD URINE ORDERABLES Final Result Performing Organization Address City/[facility]/ZIP Co de Phone Number [facility] [address] [place] [address] [facility] [address] [place] [phone] * (ABNORMAL) Beta-Hydroxybutyrate (05/24/2025 2:15 PM EST) Beta-Hydroxybu tyrate 0.37(H) mmol/L [facility], Comment:Reference Range: JOSE LT: 0.28 OR LESS Blood BLOOD SPECIMEN / Unknown 05/24/2025 2:15 PM EST 05/24/2025 2:15 PM EST Narrative [facility] - 05/28/2025 1:55 PM EST FASTING:YES FASTING: YES Resulting Agency Comment Performing Organization Information: Site ID: [id number] Name: [facility] [employer] [facility], Address: [address] [place] [phone] Director: Bonnie Roberson MD,PhD,BRITT us Kathie Koenig MD LAB BLOOD ORDERABLES Final Resul t Performing Organization Address [facility] Co de Phone Number [facility] [address] [phone] [facility], [address] [place] [phone] * CBC auto differential (05/24/2025 2:15 PM EST) WBC 5.4 3.8 - 10.8 Thousand/u L [facility] RBC 5.38 4.20 - 5.80 Million/uL [facility] Hemoglobin 15.3 13.2 - 17.1 g/dL [facility] Hematocrit 45.8 38.5 - 50.0 % [facility] MCV 85.1 80.0 - 100.0 fL [facility] MCH 28.4 27.0 - 33.0 pg [facility] MCHC 33.4 32.0 - 36.0 g/dL [facility] Comment: For adults, a slight decrease in the calculated MCHC value (in the range of 30 to 32 g/dL) is most likely not clinically significant; however, it should be interpreted with caution in correlation with other red cell parameters and the patient's clinical condition. RDW 12.7 11.0 - 15.0 % [facility] Platelets 236 140 - 400 Thousand/u L [facility] MPV 11.1 7.5 - 12.5 fL [facility] Neutrophils Absolute 3,116 1,500 - 7,800 cells/uL [facility] Lymphocytes Absolute 1,550 850 - 3,900 cells/uL [facility] Monocytes Absolute 319 200 - 950 cells/uL [facility] Eosinophils Absolute 367 15 - 500 cells/uL [facility] Basophils Absolute 49 0 - 200 cells/uL [facility] Neutrophils 57.7 % [facility] Lymphs 28.7 % [facility] Monocytes 5.9 % [facility] Eos 6.8 % [facility] Basos 0.9 % [facility] Blood BLOOD SPECIMEN / Unknown 05/24/2025 2:15 PM EST 05/24/2025 2:15 PM EST Narrative [facility] - 05/28/2025 1:55 PM EST FASTING:YES FASTING: YES Resulting Agency Comment Performing Organization Information: Site ID: [id number] Name: [employer] [employer] [employer] [facility] Address: [address] [place] [phone] Director: Janis Gallego M.D. us Kathie Koenig MD LAB BLOOD ORDERABLES Final Resul t [facility] [address] [place] [address] [employer] [address] [place] [address] * (ABNORMAL) CARNITINE, FREE AND TOTAL (05/24/2025 2:15 PM EST) Carnitine, Total 68 30 - 70 umol/L [facility], Carnitine, Free 51 23 - 59 umol/L [facility], Carnitine, Eri 17(H) 4 - 15 umol/L [facility], Esterfied/Free Ratio 0.33 0.12 - 0.39 umol/L [facility], Comment: This serum carnitine profile is essentially normal. Clinical correlation is recommended. Interpretation reviewed by: Juno Guillen MD, [facility].- IF THE ORDERING/TREATING PHYSICIAN HAS ANY QUESTIONS REGARDING THESE RESULTS, PLEASE CONTACT THE [facility] AT ext [phone] or ext [phone] AND ASK TO SPEAK WITH THE COURT MONITOR USER SUPPORT SPECIALIST. FOR GENERAL QUESTIONS ABOUT [facility], PLEASE CALL THE GENE INFO LINE AT [phone].- Carnitine, an amino acid synthesized in animal tissues from lysine and methionine by an iron-ascorbate dependent pathway, functions as a carrier of fatty acids across cell membranes. Serum carnitine analysis is useful in the diagnosis and monitoring of patients with carnitine deficiency (either primary or secondary). Primary systemic carnitine deficiency (CDSP), also known as carnitine uptake defect (CUD) is an autosomal recessive disorder that affects carnitine uptake by cells and tissues through a defect in the plasma membrane carnitine transporter (OCTN2, encoded by the [id number] gene located on chromosome 5q31.1). The incidence of CDSP is approximately 1 in 50,000. The clinical presentation and age of onset of CDSP can vary, but typical findings include hypoketotic hypoglycemia, hepatomegaly, cardiomyopathy, skeletal myopathy, and weakness. If diagnosed early, treatment with carnitine can reverse many of the clinical symptoms. Secondary carnitine deficiency occurs in some disease states, in patients on carnitine-poor diets, or secondary to medications including valproic acid. It is also found in a number of metabolic disorders affecting fatty acid and organic acid metabolism. In these disorders, carnitine complexes with the accumulated substrate of the blocked metabolic step, and the resulting acylcarnitines are excreted in the urine, leading to a depletion of carnitine in the patient. Elevated free carnitine can occur in CPT-1 deficiency or secondary to dietary carnitine supplementation, while increased esterified carnitine may indicate an underlying metabolic defect. This test is not intended to diagnose these disorders. All results should be interpreted in the context of clinical findings, relevant history, and other laboratory data. This test was developed and its analytical performance characteristics have been determined by [facility]. It has not been cleared or approved by the FDA. This assay has been validated pursuant to the CLIA regulations and is used for clinical purposes. Blood BLOOD SPECIMEN / Unknown 05/24/2025 2:15 PM EST 05/24/2025 2:15 PM EST Narrative [facility] - 05/28/2025 1:55 PM EST FASTING:YES FASTING: YES Resulting Agency Comment Performing Organization Information: Site ID: [id number] Name: [facility], Address: [address] [place] [phone] Director: Bonnie Roberson MD,PhD,BRITT us Kathie Koenig MD LAB BLOOD ORDERABLES Final Resul t [facility] [address] [phone] [facility] [facility], [address] [place] [phone] * Vitamin D 25 hydroxy (05/24/2025 2:15 PM EST) Vitamin D, 25-OH, Total, IA 48 30 - 100 ng/mL [facility] Comment: Vitamin D Status 25-OH Vitamin D: Deficiency: <20 ng/mL Insufficiency: 20 - 29 ng/mL Optimal: > or = 30 ng/mL For 25-OH Vitamin D testing on patients on D2-supplementation and patients for whom quantitation of D2 and D3 fractions is required, the [facility](TM) 25-OH VIT D, (D2,D3), LC/MS/MS is recommended: order code 26008 (patients >2yrs). See Note 1 Note 1 For additional information, please refer to http://education.[facility]/faq/EBI081 (This link is being provided for informational/ educational purposes only.) Blood BLOOD SPECIMEN / Unknown 05/24/2025 2:15 PM EST 05/24/2025 2:15 PM EST Narrative [facility] - 05/28/2025 1:55 PM EST FASTING:YES FASTING: YES Resulting Agency Comment Performing Organization Information: Site ID: [id number] Name: [facility] Address: [address] [place] [phone] Director: Janis Gallego M.D. us Kathie Koenig MD LAB BLOOD ORDERABLES Final Resul t [facility] [address] [place] [address] [place] [address] [facility] [address] [place] [phone] * Uric acid (05/24/2025 2:15 PM EST) Uric Acid 5.8 4.0 - 8.0 mg/dL [facility] Comment: Therapeutic target for gout patients: <6.0 mg/dL Blood BLOOD SPECIMEN / Unknown 05/24/2025 2:15 PM EST 05/24/2025 2:15 PM EST [employer] - 05/28/2025 1:55 PM EST FASTING:YES FASTING: YES Resulting Agency Comment Performing Organization Information: Site ID: [id number] Name: [facility] Address: [address] [place] [phone] Director: Janis Gallego M.D. Kathie Koenig MD LAB BLOOD ORDERABLES Final Resul t Performing Organization Address [facility] Phone Number [facility] [address] [place] [phone] [facility] [employer] [facility] [employer] [facility] [address] [place] [phone] * Phosphorus (05/24/2025 2:15 PM EST) Phosphorus 3.7 2.5 - 4.5 mg/dL [facility] Blood BLOOD SPECIMEN / Unknown 05/24/2025 2:15 PM EST 05/24/2025 2:15 PM EST Narrative [facility] - 05/28/2025 1:55 PM EST FASTING:YES FASTING: YES Resulting Agency Comment Performing Organization Information: Site ID: [id number] Name: [facility] Address: [address] [place] [phone] Director: Janis Gallego M.D. Kathie Koenig MD LAB BLOOD ORDERABLES Final Resul t Performing Organization Address [facility] Number [facility] [address] [place] [phone] [employer] [address] [place] [phone] * Magnesium (05/24/2025 2:15 PM EST) Magnesium 2.1 1.5 - 2.5 mg/dL [facility] Blood BLOOD SPECIMEN / Unknown 05/24/2025 2:15 PM EST 05/24/2025 2:15 PM EST Narrative [facility] - 05/28/2025 1:55 PM EST FASTING:YES FASTING: YES Resulting Agency Comment Performing Organization Information: Site ID: [id number] Name: [facility] Address: [address] [place] [phone] Director: Janis Gallego M.D. us Kathie Koenig MD LAB BLOOD ORDERABLES Final Resul t [facility] [address] [place] [address] [facility] [address] [place] [phone] * (ABNORMAL) Lipid panel (05/24/2025 2:15 PM EST) [facility] Signature Cholesterol, Total 217(H) <200 mg/dL [facility] HDL 58 > OR = 40 mg/dL [facility] Triglycerides 58 <150 mg/dL [facility] LDL Calculated 145(H) mg/dL (calc) [facility] Comment: Reference range: <100 Desirable range <100 mg/dL for primary prevention; <70 mg/dL for patients with CHD or diabetic patients with > or = 2 CHD risk factors. LDL-C is now calculated using the Ronnell-Craig calculation, which is a validated novel method providing better accuracy than the Friedewald equation in the estimation of LDL-C. Ronnell SS et al. LULA. 2013;310(19): 1492-0677 (http://education.[facility]/faq/ZHZ798) Chol/HDL Ratio 3.7 <5.0 (calc) [facility] Non HDL Chol. (LDL+VLDL) 159(H) <130 mg/dL (calc) [facility] Comment: For patients with diabetes plus 1 major ASCVD risk factor, treating to a non-HDL-C goal of <100 mg/dL (LDL-C of <70 mg/dL) is considered a therapeutic option. Blood BLOOD SPECIMEN / Unknown 05/24/2025 2:15 PM EST 05/24/2025 2:15 PM EST Narrative [facility] - 05/28/2025 1:55 PM EST FASTING:YES FASTING: YES Resulting Agency Comment Performing Organization Information: Site ID: [id number] Name: [facility] Address: [address] [place] [address] Director: Janis Gallego M.D. us Kathie Koenig MD LAB BLOOD ORDERABLES Final Resul t [facility] [address] [place] [address] [facility] [address] [place] [address] * Comprehensive metabolic panel (CMP): Na, K, CL, Co2, Gluc, Ca, BUN, Creat, B/C, T.Prot, Alb, Glb, A/G, AST, ALT, ALKP, T.Bili (05/24/2025 2:15 PM EST) Glucose 88 65 - 99 mg/dL [facility] Comment: Fasting reference interval BUN 17 7 - 25 mg/dL [facility] Creatinine 0.74 0.60 - 1.26 mg/dL [facility] EGFR 119 > OR = 60 mL/min/1. 73m2 [facility] BUN/Creatinine Ratio SEE NOTE: 6 - 22 (calc) [facility] Comment: Not Reported: BUN and Creatinine are within reference range. Sodium 138 135 - 146 mmol/L [facility] Potassium 4.5 3.5 - 5.3 mmol/L [facility] Chloride 107 98 - 110 mmol/L [facility] CO2 23 20 - 32 mmol/L [facility] Calcium 9.3 8.6 - 10.3 mg/dL [facility] Total Protein 6.9 6.1 - 8.1 g/dL [facility] Albumin 4.6 3.6 - 5.1 g/dL [facility] Globulin, Total 2.3 1.9 - 3.7 g/dL (calc) [facility] A/G Ratio 2.0 1.0 - 2.5 (calc) [facility] Total Bilirubin 0.5 0.2 - 1.2 mg/dL [facility] Alkaline Phosphatase 58 36 - 130 U/L [facility] AST 15 10 - 40 U/L [facility] ALT 23 9 - 46 U/L [facility] Blood BLOOD SPECIMEN / Unknown 05/24/2025 2:15 PM EST 05/24/2025 2:15 PM EST Narrative [facility] - 05/28/2025 1:55 PM EST FASTING:YES FASTING: YES Resulting Agency Comment Performing Organization Information: Site ID: [id number] Name: [facility] Address: [address] [place] [phone] Director: Janis Gallego M.D. us Kathie Koenig MD LAB BLOOD ORDERABLES Final Resul t [facility] [address] [place] [address] [facility] [address] [place] [phone] from Last 3 Months Insurance [employer] Care Teams Audio Video Repairer Relationship Specialty Start Date End Date Blanco, Tal, MD [address] [place] [address] PCP - General 02/28/23
--- OUTSIDE RECORDS SUMMARY | 2025-06-29 19:46 | XMS_ITS | Encounter Summary ---
Author Organization [facility] Address [address] [place] [address] Care Team Providers Care Refrigeration Supervisor Name Role Phone Dhiraj Sonja Whalen Primary Care Provider [phone] Reason for Visit * Reason Onset Date Comments follow up apt with Dr. Cerda 11/09/2021 Encounter Details Date Type Department Care Team (Late st Contact Info) Description 11/09/2021 Telephone [facility] [address] [place] [address] Telephone Intake, Staff follow up apt with Dr. Cerda Social History Tobacco Use Types Packs/Day Years [...] PM EST documented as of this encounter Miscellaneous Notes * Telephone Encounter - Kristan Jimi - 11/09/2021 2:05 PM EDT Mom called and said that she wants to schedule a follow up apt with Dr. Cerda. I tried to book an aptbut there is nothing available no apt came up when I did the DT. A good call back number is [phone] documented in this encounter Plan of Treatment Not on file documented as of this encounter Visit Diagnoses Not on filedocumented in this encounter Care Teams Refrigeration Supervisor Relationship Specialty Start Date End Date Sonja Muniz [address] [facility] [address] PCP - General 01/31/17 documented as of this encounter
--- OUTSIDE RECORDS SUMMARY | 2025-06-29 19:46 | XMS_ITS | Encounter Summary ---
Author Organization [facility] Address [address] [place] [address] Care Team Providers Care Lawn Care Professional Name Role Phone Sonja Muniz Primary Care Provider [phone] Encounter Details Date Type Department Care Team (Late st Contact Info) Description 12/17/2020 myChart Message [facility] [address] [place] [address] Gisele Cerda MD [address] [place] [address] RE: Test Results Question Social History Tobacco Use Types Packs/Day Years [...] on filedocumented in this encounter Care Teams Lawn Care Professional Relationship Specialty Start Date End Date Sonja Muniz [address] [place] [address] [place] [address] PCP - General 01/31/17 documented as of this encounter
--- OUTSIDE RECORDS SUMMARY | 2025-06-29 19:46 | XMS_ITS | Encounter Summary ---
Author Organization [facility] Address [address] [place] [address] Care Team Providers Care Roller Shop Supervisor Name Role Phone Sonja Muniz Primary Care Provider [phone] Encounter Details Date Type Department Care Team (Late st Contact Info) Description 01/13/2021 Orders Only [facility] [address] [place] [address] [id number] Provider, Nehal, [address] [place] [address] Social History Tobacco Use Types Packs/Day Years [...] file documented as of this encounter Procedures * Due to [place] state law, this organization might not be sharing negative HIV tests. Procedure Name Priority Date/Time Associated Diagnosis Comments LAB - SCANNED Routine 01/04/2021 documented in this encounter Results * Due to [place] state law, this organization might not be sharing negative HIV tests. * LAB - SCANNED (01/04/2021) us Unknown Provider LAB HISTORICAL RESULTS Final Result documented in this encounter Visit Diagnoses Not on filedocumented in this encounter Care Teams Roller Shop Supervisor Relationship Specialty Start Date End Date Sonja Muniz [address] [facility] [place] [address] PCP - General 01/31/17 documented as of this encounter
--- OUTSIDE RECORDS SUMMARY | 2025-06-29 19:46 | XMS_ITS | Encounter Summary ---
Author Organization [facility] Address [address] [place] [address] Care Team Providers Care Spin Tank Tender Name Role Phone Sonja Muniz Primary Care Provider [phone] Encounter Details Date Type Department Care Team (Late st Contact Info) Description 01/05/2021 Orders Only [facility] [address] [place] [address] Provider, Generic External Data Social History Tobacco Use Types Packs/Day Years [...] of this encounter Procedures * Due to [place] [employer] law, this organization might not be sharing negative HIV tests. Procedure Name Priority Date/Time Associated Diagnosis Comments LAB - SCANNED Routine 01/04/2021 documented in this encounter Results * Due to [place] state law, this organization might not be sharing negative HIV tests. * LAB - SCANNED (01/04/2021) us Generic External Data Provider LAB HISTORICAL RE SULTS Final Result documented in this encounter Visit Diagnoses Not on filedocumented in this encounter Care Teams Spin Tank Tender Relationship Specialty Start Date End Date Sonja Muniz [address] [place] [address] dr [place], [place] [address] PCP - General 01/31/17 documented as of this encounter
--- OUTSIDE RECORDS SUMMARY | 2025-06-29 19:46 | XMS_ITS | Encounter Summary ---
Author Organization [facility] Address [address] [place] [address] Care Team Providers Care Field Manager Name Role Phone Tal Blanco MD Primary Care Provider [phone] Encounter Details Date Type Department Care Team (Late st Contact Info) Description 06/21/2025 Telephone [facility], [place] [address] [place] [address] Destinee Willson RN [address] [place] [address] Social History Tobacco Use Types Packs/Day Years Used Date Smoking Tobacco: Never Smokeless Tobacco: Never Sex and Gender Information Value Date Recorded Sex Assigned at Male 04/15/2023 2:17 PM EDT Legal Sex Male 8:22 AM EDT Gender Identity Male 04/15/2023 2:17 PM EDT Sexual Orientation Not on file documented as of this encounter Miscellaneous Notes * Telephone Encounter - Destinee Willson RN - 06/21/2025 11:15 AM EST Received fax from [facility] with PA request for Dandre. Cover my meds edgar provided: [id number] Per 04/07/25 telephone encounter, certain diagnosis codes were not being covered but Rx was then approved using R63.39. Per med dispense report, this was filled on 06/18/25. Spoke with [facility]. This is all set- fax can be discarded. documented in this encounter Plan of Treatment Upcoming Encounters Date Type Department Care Team (Late st Contact Info) Description 11/08/2025 8:40 AM EDT Office Visit [facility], [address] [address] Kathie Koenig MD [address] [place] [address] 11/08/2025 9:00 AM EDT Clinical Support [facility]rology, [place] [id number] Georgia Loza, IVORY [address] [place] [address] documented as of this encounter Visit Diagnoses Not on filedocumented in this encounter Care Teams Field Manager Relationship Specialty Start Date End Date Tal Blanco MD [address] [place] [address] PCP - General 02/28/23 documented as of this encounter
--- OUTSIDE RECORDS SUMMARY | 2025-06-29 19:46 | XMS_ITS | Encounter Summary ---
Author Organization [facility] Address [address] [place] [address] Care Team Providers Care Utility Locator Name Role Phone Sonja Muniz Primary Care Provider [phone] Encounter Details Date Type Department Care Team (Late st Contact Info) Description 11/23/2020 myChart Message [facility] [address] [place] [address] Gisele Cerda MD [address] [place] [address] RE: Visit Follow-Up Question Social History Tobacco Use Types Packs/Day [...] on filedocumented in this encounter Care Teams Utility Locator Relationship Specialty Start Date End Date Sonja Muniz [address] [place] [address] [place] [address] PCP - General 01/31/17 documented as of this encounter
--- OUTSIDE RECORDS SUMMARY | 2025-06-29 19:46 | XMS_ITS | Clinical Summary ---
Author Organization [address] Address [address] [place] [address] Phone Care Team Providers Care Acid Extractor Name Role Phone Sonja Muniz MD Primary Care Provid er Allergies No known active allergies Medications lacosamide 50 mg (14)- 100 mg (14) DsPk Take by mouth. Activ e clonazePAM (KLONOPIN) 1 mg tablet Take 1 tablet (1 mg total) by mouth 2 (two) times daily. Active zonisamide (ZONEGRAN) 25 mg capsule Take by mouth. Acti ve albuterol (ACCUNEB) 0.63 mg/3 mL nebulizer solution Take 3 mLs by nebulization every 6 (six) hours as needed for shortness of breath. Active losartan (COZAAR) 50 mg tablet Take 1 tablet (50 mg total) by mouth daily. Active Active Problems No known active problems Immunizations Immunization Administration Dates Next Due Influenza, unspecified formulation 04/28/2024 Social History Tobacco Use Types Packs/Day Years Used Date Smoking Tobacco: Never Tobacco Cessation:Counseling Given: Not Answered Sex and Gender Information Value Date Recorded Sex Assigned at Not on file Legal Sex Male 7:13 PM EDT Gender Identity Not on file Sexual Orientation Not on file Plan of Treatment Health Maintenance Due Date Last Done Comments HIV screening 12/24/1999 Hepatitis C screening 2004 Tetanus adult (Td q 10,TDAP once) 2006 Influenza vaccine 02/12/2025 04/28/2024 Covid-19 vaccine series ( - 2024- season) 2025 RSV Immunization (1 - 1-dose 75+ series) 2061 Meningococcal B Vaccine Aged Out No l onger eligible based on patient's age to complete this topic Meningococcal Vaccine Aged Out No robbi joanne eligible based on patient's age to complete this topic Pneumococcal Vaccine (2 - 49 years) Aged Out No longer eligible b ased on patient's age to complete this topic Insurance [place] [facility] [place] [facility] Care Teams Acid Extractor Relationship Specialty Start Date End Date Sonja Muniz MD [address] [place] [address] Dr [place], [place] [id number] PCP - General Internal Medicine 06/18/24
--- OUTSIDE RECORDS SUMMARY | 2025-06-29 19:47 | XMS_ITS | Encounter Summary ---
Author Organization [facility] Address [address] [place] [address] Care Team Providers Care Tinter Photograph Name Role Phone Sonja Muniz MD Primary Care Provider [phone] Encounter Details Date Type Department Care Team (Late st Contact Info) Description 03/16/2025 Scanned Document [facility]PILEPS[facility] [id number] [address] [id number] Tal Blanco MD [address] [address] Social History Tobacco Use Types Packs/Day Years [...] on filedocumented in this encounter Care Teams Tinter Photograph Relationship Specialty Start Date End Date Sonja Muniz MD [address] [place] [address] PCP - General Family Medicine 01/11/23 documented as of this encounter
--- OUTSIDE RECORDS SUMMARY | 2025-06-29 19:47 | XMS_ITS | Encounter Summary ---
Author Organization [facility] Address [address] [place] [address] Care Team Providers Care Patient Financial Advocate Name Role Phone Sonja Muniz Primary Care Provider [phone] Encounter Details Date Type Department Care Team (Late st Contact Info) Description 06/24/2020 Telephone [facility] [address] [place] [address] Deysi Garces [address] [place] [address] Social History Tobacco Use Types Packs/Day Years [...] on filedocumented in this encounter Care Teams Patient Financial Advocate Relationship Specialty Start Date End Date Sonja Muniz [address] [place] [address] [place] [address] PCP - General 01/31/17 documented as of this encounter
--- OUTSIDE RECORDS SUMMARY | 2025-06-29 19:47 | XMS_ITS | Encounter Summary ---
Author Organization [facility] Address [address] [place] [address] Care Team Providers Care Ring Packer Name Role Phone Sonja Muniz Primary Care Provider [phone] Reason for Visit * Reason Onset Date Comments md call back 09/22/2020 Encounter Details Date Type Department Care Team (Late st Contact Info) Description 09/22/2020 Telephone [facility] [address] [place] [address] Telephone Intake, Staff md call back Social History Tobacco Use Types Packs/Day Years [...] encounter Miscellaneous Notes * Telephone Encounter - Gisele Cerda MD - 10/03/2020 2:38 PM EDT LM on VM with office number and also offered her to send a note via [email or web address]. * Telephone Encounter - Mary Yusuf - 09/22/2020 4:36 PM EST Nets mother is requesting a call back to discuss patients recent change for depakote. Patient is still having seizures. Seizure frequesncey is the same. documented in this encounter Plan of Treatment Not on file documented as of this encounter Visit Diagnoses Not on filedocumented in this encounter Care Teams Ring Packer Relationship Specialty Start Date End Date Sonja Muniz [address] [place] [address] dr [place], [place] [address] PCP - General 01/31/17 documented as of this encounter
--- OUTSIDE RECORDS SUMMARY | 2025-06-29 19:47 | XMS_ITS | Clinical Summary ---
Author Organization [facility] Address [address] [place] [address] Care Team Providers Care Conference Services Coordinator Name Role Phone Sonja Muniz Primary Care Provider [phone] Allergies Active Allergy Reactions Criticality Noted Date Comments Shellfish Derived Rash,Edema Medications albuterol (PROAIR HFA,VENTOLIN HFA) 90 mcg inhaler Albuterol AERS unknown dose Quantity: 0; Refills: 0 Started 30-Apr-2008 Active 8 Active montelukast (SINGULAIR) 10 mg tablet Montelukast Sodium 10 MG Oral Tablet TAKE 1 TABLET DAILY. Quantity: 30; Refills: 2 DEVEN CALLE MD; Started 30-Apr-2008 Active 8 Active cetirizine (ZyrTEC) 10 mg tablet Take 10 mg by mouth daily. Active hydroCHLOROthiaz silviano (HYDRODIURIL) 12.5 mg tablet Take 12.5 mg by mouth once a day. Active vitamin D3 25 mcg (1,000 unit) capsuleIndicatio ns:Vitamin D deficiency TAKE 1 CAPSULE BY MOUTH EVERY DAY 90 capsule 3 3 Active zonisamide (ZONEGRAN) 100 mg capsuleIndicatio ns:Intractable generalized idiopathic epilepsy without status epilepticus,Epil epsy, myoclonic, intractable TAKE 3 CAPSULES(300 MG) BY MOUTH AT BEDTIME 270 capsule 3 3 Active prochlorperazine (COMPAZINE) 5 mg tabletIndication s:Intractable generalized idiopathic epilepsy without status epilepticus,Naus ea TAKE 1 TO 2 TABLETS(5 TO 10 MG) BY MOUTH EVERY 8 HOURS NEEDED FOR NAUSEA 30 tablet 5 3 Active divalproex ER (DEPAKOTE ER) 500 mg tabletIndication s:Epilepsy, myoclonic, intractable TAKE 1 TABLET(500 MG) BY MOUTH EVERY NIGHT AT BEDTIME 30 tablet 11 3 Active carBAMazepine XR (TEGretol XR) 400 mg tabletIndication s:Intractable generalized idiopathic epilepsy without status epilepticus,Epil epsy, myoclonic, intractable TAKE 1 TABLET(400 MG) BY MOUTH EVERY NIGHT AT BEDTIME 90 tablet 3 4 Active ondansetron (ZOFRAN) 4 mg tablet TAKE 1 TABLET(4 MG) BY MOUTH EVERY 8 HOURS NEEDED FOR NAUSEA OR VOMITING 15 tablet 4 Active clonazePAM (KlonoPIN) 0.5 mg tabletIndication s:Intractable generalized idiopathic epilepsy without status epilepticus TAKE 1 TABLET BY MOUTH DAILY NEEDED FOR SEIZURES( LASTING GREATER THAN 3 MINUTES OR SEIZURE CLUSTER) 10 tablet 4 Active Active Problems Problem Noted Date Diagnosed Date Seizure disorder, intractable 08/25/2016 Overview (2019): Medically refractory generalized epilepsy, on Klonopin, Depakote and zonisamide. He describes 2 types of seizures, the first are associated with his mind going blank during which he has forgotten what he is going to say and is accompanied by myoclonic jerks. He does not fall and this lasts for seconds. The second type is a seizure associated with possible preceding headache after which he will fall with loss of consciousness associated with nausea and vomiting. His mother reports that this is his convulsive seizure. The latter type of seizure occurs about once every 3 months. In February 2016, he was reporting an increase in his myoclonic seizures. He reports having increased difficulty sleeping and staying up at night interacting with friends from a [employer] group on [employer]. He will sleep between the hours of 4:00 a.m. to 1:00 p.m. if he does not fall asleep after taking Klonopin at around 11:00 p.m. He denies any missed doses of medications. This was attributed to severe sleep deprivation and melatonin was prescribed. In fall/winter 2015, he gradually weaned down to Clonazepam 1mg nightly for insomnia and has not tried using melatonin on the nights he wakes up and has difficulty sleeping. In Aug 2016, Laurie reports that he l l typically stay up late about three times a week. The following day, he may have a small, brief breakthrough seizures without fall or associated injury. He had not had a convulsive seizure. In October 2016, he called and spoke with neurology resident regarding resuming Klonopin 2mg at bedtime. He reports having his last episode in Aug 2017 of intermittent myoclonic jerks for which he just went to bed after which they resolved. The jerks were not associated with fall or injury. He denies any missed doses or any side effects to the medications. In Sep 2017, due to 2-3 myoclonic seizures per month, I recommend increasing Carbamazepine ER 200/400 to 400mg BID. In December 2017, He self-dropped his Depakote ER 500mg nightly, Carbamazepine ER 400mg nightly, Zonisamide 300mg nightly and Klonopin 2mg nightly. He's only had 1-2 myoclonic seizures per month. No associated injury or fall. Although his doses are all lower, he reports sleeping better and thinks that is why his seizure have not worsened or even improved. He reports that aside from when he's sleep deprived (last at the end of February) and has brief myoclonic seizures that he has not had any convulsions and his seizures have been well controlled. His insomnia is slightly better although there are still nights he finds it difficult to fall asleep. Mood is good. He was referred to [facility] and reports that he was in a program for while in late 2016. But due to interruption in his transportation, he lost that opportunity. Pt's brother didn't have a good experience in fast food industry and so pt is not motivated to pursue this. 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 September 2018: Reports myoclonic seizures around Xmas time Jun 2018 in the setting of sleep deprivation. He reports he just slept it off . Denies missed doses. Previously had reported in September 2017, 2-3 myoclonic seizures per month. STUDIES: EEG in May 2008, abnormal due to the presence of initially a slow and disorganized background suggestive of mild diffuse cerebral dysfunction, intermittent generalized appearing spike wave discharges and some polyspike wave discharges. Assessment & Plan (03/13/2022 3:25 PM EDT): - continue Depakote ER 500mg at bedtime - continue Klonopin 2mg qhs - continue Zonisamide 300mg nightly - continue Carbamazepine ER 400mg nightly - interested in epilepsy resource room info: support groups and vocational training/job placement (interested in writing comic books) Seizure precautions were reviewed as well as side effects of the medication(s). The patient knows to contact me should side effects occur. I spent a total of 30 minutes on the date of encounter, which included: Obtaining and/or reviewing separately obtained history Performing a medically appropriate exam and/or evaluation Counseling and educating the patient/family/caregiver Ordering medications, tests, procedures Documenting clinical information in the health record Assessment & Plan (04/21/2021 3:23 PM EDT): - continue Depakote ER 750mg at bedtime - continue Klonopin 2mg qhs - continue Zonisamide 300mg nightly - continue Carbamazepine ER 400mg nightly - interested in epilepsy resource room info: support groups and vocational training/job placement Seizure precautions were reviewed as well as side effects of the medication(s). The patient knows to contact me should side effects occur. I spent a total of 30 minutes on the date of encounter, which included: Obtaining and/or reviewing separately obtained history Performing a medically appropriate exam and/or evaluation Counseling and educating the patient/family/caregiver Ordering medications, tests, procedures Documenting clinical information in the health record Assessment & Plan (12/09/2020 4:44 PM EDT): - increase from Depakote ER 500mg at bedtime to Depakote ER 750mg at bedtime due to increased convulsions since 2018 - continue Klonopin 2mg qhs - continue Zonisamide 300mg nightly - continue Carbamazepine ER 400mg nightly - obtain surveillance blood work, mail lab slip - interested in epilepsy resource room info: support groups and vocational training/job placement Seizure precautions were reviewed as well as side effects of the medication(s). The patient knows to contact me should side effects occur. Total time of visit was 25 minutes. Assessment & Plan (08/10/2020 2:13 PM EST): - increase from Depakote ER 500mg at bedtime to Depakote ER 750mg at bedtime due to increased convulsions since 2018 (when pt self-dc'd am doses of Depakote and CBZ) - continue Klonopin 2mg qhs - continue Zonisamide 300mg nightly - continue Carbamazepine ER 400mg nightly - obtain surveillance blood work next year Seizure precautions were reviewed as well as side effects of the medication(s). The patient knows to contact me should side effects occur. Total time of visit was 30 minutes. Assessment & Plan (2019 1:03 PM EDT): - continue Depakote ER 500mg qhs - continue Klonopin 2mg qhs - continue Zonisamide 300mg nightly - continue Carbamazepine ER 400mg nightly - obtain surveillance blood work next year Seizure precautions were reviewed as well as side effects of the medication(s). The patient knows to contact me should side effects occur. Total time of visit was 20 minutes. 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 The patient knows to contact me should side effects occur. Total time of visit was 20 minutes, 15 minutes were spent in counseling and coordination of care as described above in detail. Assessment & Plan (03/25/2018 2:03 PM EDT): - continue Depakote ER 500mg, Klonopin 2mg qhs, Zonisamide 300mg nightly, Carbamazepine ER 400mg nightly for now, watch for convulsions and strict seizure precautions - reviewed blood work from Sep 2017 which is within range Seizure precautions were reviewed as well as side effects of the medication(s). The patient knows to contact me should side effects occur. Total time of visit was 30 minutes, 20 minutes were spent in counseling and coordination of care as described above in detail. Assessment & Plan (09/24/2017 5:45 PM EDT): - continue Depakote ER 500mg BID, Klonopin 2mg qhs, Zonisamide 300mg/200mg - he'll undergo surveillance blood work today - due to 2-3 myoclonic seizures per month, I recommend increasing Carbamazepine ER 200/400 to 400mg BID to assess for interval improvement in seizure control. Previous increases of Depakote causes weight gain and Zonisamide worsening depression - he is requesting a letter of diagnosis and ability to work with appropriate restrictions to provide to his [facility] counselor. He was also provided his neuropsychological testing results and recommendations which show that he has visuospatial strengths Seizure precautions were reviewed as well as side effects of the medication(s). The patient knows to contact me should side effects occur. Total time of visit was 30 minutes, 20 minutes were spent in counseling and coordination of care as described above in detail. Vitamin d deficiency 11/17/2013 Constipation 08/11/2013 Daily nausea 12/26/2012 Allergic rhinitis 11/01/2011 Insomnia 12/13/2010 Family History Medical History Relation Name Comments Other Father Family History of malignant melanoma Other Maternal Grandfather Family History of diabetes mellitus Other Paternal Grandfather Family History of diabetes mellitus Relation Name Status Comments Father Maternal Grandfather Mother Alive Paternal Grandfather Social History Tobacco Use Types Packs/Day Years [...] Orientation Straight 08/21/2020 6: 17 PM EST Last Filed Vital Signs Vital Sign Reading Time Taken Comments Blood Pressure 142/103 09/26/2018 3:14 PM EDT Pulse 77 09/26/2018 3:14 PM EDT Temperature - - Respiratory Rate - - Oxygen Saturation 98% 02/22/2016 11:31 AM EDT Inhaled Oxygen Concentration - - Weight 122.5 kg (270 lb) 04/21/2021 2:36 PM EDT Height 180.3 cm (5' 11 ) 04/21/2021 2:36 PM EDT Body Mass Index 37.66 04/21/2021 2:36 PM EDT Plan of Treatment Health Maintenance Due Date Last Done Comments HIV Screening 1986 Varicella Vaccines (1 of 2 - 13+ 2-dose series) 12/24/1999 Hepatitis B Vaccines (1 of 3 - 19+ 3-dose series) 2005 DTaP,Tdap,and Td Vaccines (1 - Tdap) 2008 Alcohol/Substance Use Screening 07/15/2024 Depression Screening and Follow-Up 07/15/2024 Social Drivers of Health Annual Screening 07/15/2024 Influenza Vaccine (#1) 2025 9, 04/10/2018, 04/26/2013, Additional history exists COVID-19 Vaccine ( - 2024- season) 2025 Pneumococcal Vaccine: Pediatric (0-5 Years) and At-Risk Patients (6-50 Years) Aged Out No longer eligible based on patient's age to complete this topic Insurance MEDICARE [place]ICAID OF [place] Care Teams Conference Services Coordinator Relationship Specialty Start Date End Date Sonja Muniz [address] [place], [place] [id number] PCP - General 01/31/17
--- OUTSIDE RECORDS SUMMARY | 2025-06-29 19:47 | XMS_ITS | Encounter Summary ---
Author Organization [facility] [place] Address [address] [place] [address] Care Team Providers Care Cook Larder Name Role Phone Sonja Muniz MD Primary Care Provider [phone] Encounter Details Date Type Department Care Team (Late st Contact Info) Description 03/02/2025 Scanned Document [address] [place] [id number] Radiology, Scan Social History Tobacco Use Types Packs/Day Years [...] Procedure Name Priority Date/Time Associated Diagnosis Comments HX OUTSIDE ORDER 03/02/2025 4:02 PM EDT documented in this encounter Results * OUTSIDE ORDER (03/02/2025 4:02 PM EDT) us Scan Radiology HX AMB PROCEDURES Final Result documented in this encounter Visit Diagnoses Not on filedocumented in this encounter Care Teams Cook Larder Relationship Specialty Start Date End Date Sonja Muniz MD [address] [place] [address] PCP - General Family Medicine 01/11/23 documented as of this encounter
--- OUTSIDE RECORDS SUMMARY | 2025-06-29 19:47 | XMS_ITS | Encounter Summary ---
Author Organization [facility] Address [address] [place] [address] Care Team Providers Care Ceramic Plater Name Role Phone Snoja Muniz Primary Care Provider [phone] Encounter Details Date Type Department Care Team (Late st Contact Info) Description 08/11/2020 myChart Message [facility] [address] [place] [address] Gisele Cerda MD [address] [place] [address] Visit Follow-Up Question Social History Tobacco Use [...] on filedocumented in this encounter Care Teams Ceramic Plater Relationship Specialty Start Date End Date Sonja Muniz [address] [place] [address] [place] [id number] PCP - General 01/31/17 documented as of this encounter
== END 2025-06-29 16:21 | disposition home or self-care (01) ==
PROVIDERS: PCP Internal Medicine; Visit Provider Internal Medicine
DX: Z00.00 Encounter for general adult medical examination without abnormal findings (principal); G40.409 Other generalized epilepsy and epileptic syndromes, not intractable, without status epilepticus

== ENCOUNTER → 2025-06-29 15:35 | Outpatient (BNVA) | payer OTHER, SELFPAY | PROVIDERS: PCP Internal Medicine; Visit Provider Internal Medicine | DX: Z00.00 Encounter for general adult medical examination without abnormal findings (principal); G40.409 Other generalized epilepsy and epileptic syndromes, not intractable, without status epilepticus | CPT/HCPCS: 96127 ==